=== PATIENT | male | born 1930 | race Caucasian/White ===

== ENCOUNTER → 2016-07-23 | Outpatient (CLI) | payer BC ==
[~2016-07-23] MED LIST: ALBU18002 INH; ASPI81TA28 PO; ATOR-24 PO; CARB25TA12 PO; CINN1CAP2 PO; CLR10 PO; CRAN1CAP15 PO; DUTA0.5C PO; FLUT115A INH; HYDR-5688 PO; LANS15CA27 PO; LISI-461 PO; LISI10TA PO; METO50TA16 PO; MONT1TAB3 PO; MULT-506 PO; OMEG10007 PO; POLYSOL4 OPB; POTA1CAP2 PO; PROAIR INH; RASA1TAB PO; ZNTT/150 PO; [UNRECOGNIZED DRUG - CODE] TOP
[2016-07-23 13:36] LABS: MEAN CELL VOLUME 90.9 fL (80-100); MEAN CORPUSCULAR HGB CONC 34.1 g/dl (32-36); MEAN PLATELET VOLUME 10.4 fL (7.4-10.4); PLATELET COUNT 185 K/uL (130-400); RED BLOOD COUNT 4.84 M/uL (4.7-6.1); WHITE BLOOD COUNT 12.02 K/uL (4.8-10.8)
[2016-07-23 14:10] LABS: BASO % 0.2 %; BASO ABS # 0.02 K/uL (0-0.2); COMPLETE YES; EOS % 1.4 %; IG% 0.1 %; LYMPH % 54.7 %; LYMPH ABS # 6.57 K/uL (1.2-3.4); MONO % 7.5 %; NEUT % 36.1 %
[2016-07-23 14:17] LABS: ESTIMATED AVERAGE GLUCOSE 128 mg/dl; HA1C FLAG Normal (Normal)
[2016-07-23 14:27] LABS: ALT/SGPT 21 U/L (12-78); AST/SGOT 17 U/L (15-37); BLOOD UREA NITROGEN 18 mg/dl (7-18); BUN/CREATININE RATIO 20.1 (10-20); CALCIUM 8.9 mg/dl (8.5-10.1); CARBON DIOXIDE 25 mmol/L (21-32); CHLORIDE 108 mmol/L (98-107); CREATININE 0.91 mg/dl (0.60-1.40); GLUCOSE 111 mg/dl (70-99); POTASSIUM 3.6 mmol/L (3.5-5.1); SODIUM 143 mmol/L (136-145)
[2016-07-23 14:47] LABS: SMUDGE CELLS PRESENT
[2016-07-23 14:58] LABS: ALB/GLOB RATIO 1.2 (0.9-2); ALKALINE PHOSPHATASE 82 U/L (45-117)
--- NOTE | 2016-07-27 09:29 | CODING QUERY MEDICAL NECESSITY ---
CQCQSUPPORTING DIAGNOSIS NEEDED A supporting diagnosis is required for the test/procedure performed on this patient in order for us to be reimbursed by the patient's insurance. Please provide a supporting diagnosis for the following test/procedure listed below next to the test name along with your signature. *If there is no additional diagnosis for this patient that would support the following test/procedure please document that below next to the test/procedure. Test(s)/Procedure(s) that require a supporting diagnosis: DOS 07/23/16 GLYCATED HEMOGLOBIN Provider Signature: Date: Thank you Hortencia G[facility] [employer] Once completed, please kindly fax back to [phone] For questions please call [phone]
== END | disposition home or self-care (01) ==
LOC: C.LAB1850 11:31
PROVIDERS: ATTEND Internal Medicine
DX: C91.11 Chronic lymphocytic leukemia of B-cell type in remission (principal); E87.6 Hypokalemia; D72.829 Elevated white blood cell count, unspecified; R73.03 Prediabetes

== ENCOUNTER 2016-08-18 10:49 | Emergency (ER) | payer BC ==
[~2016-08-18] VITALS: Ht 175.3 cm; Wt 74.0 kg
[~2016-08-18 10:49] MED LIST changes: -ALBU18002 INH; -HYDR-5688 PO; -[UNRECOGNIZED DRUG - CODE] TOP
[2016-08-18 11:04] VITALS: TEMP 36.9; Ht 175.3 cm; Wt 74.0 kg
[2016-08-18] MEDS ORDERED: ALBU18002 INH (11:19)
[2016-08-18] MEDS ORDERED: [UNRECOGNIZED DRUG - CODE] TOP (11:19)
[2016-08-18] MEDS ORDERED: OXYCODONE HCL IR 5 MG TAB (IMMEDIATE RELEASE) PO STA (11:45)
--- NOTE | 2016-08-18 12:32 | DIAGNOSTIC IMAGING REPORT ---
RIGHT PELVIS/UNILATERAL HIP 2-3VIEWS CLINICAL HISTORY: Fall, right hip pain/back pain Right trauma. Pain. COMPARISON: None. DISCUSSION: The bones and joint spaces appear intact. There is no evidence of fracture, dislocation or bony disease. There is no evidence for soft tissue swelling. IMPRESSION: Negative study. Electronically signed by: Markos Benton M.D. 08/18/2016 12:31 PM Dictated Date/Time: 08/18/2016 12:30 PM
--- NOTE | 2016-08-18 12:34 | DIAGNOSTIC IMAGING REPORT ---
LUMBAR SPINE 5 VIEWS HISTORY: Trauma. Pain. Fall, right hip pain/back pain COMPARISON: None. FINDINGS: There is no fracture. Moderate scoliosis. Moderate degenerative disc changes throughout. No evidence for compression deformity. IMPRESSION: Degenerative change. Scoliosis. No acute process. Electronically signed by: Markos Benton M.D. 08/18/2016 12:32 PM Dictated Date/Time: 08/18/2016 12:31 PM
--- NOTE | 2016-08-18 13:51 | DIAGNOSTIC IMAGING REPORT ---
LUMBAR SPINE CT CT DOSE: 1382.41 mGy.cm HISTORY: Trauma. Pain. Low back pain and right hip pain s/p fall TECHNIQUE: Multiaxial CT images of the lumbar spine were performed and reformatted in the sagittal and coronal plane without the use of contrast. COMPARISON: None. FINDINGS: Mild scoliosis. Vertebral body stature is normal. Considerable degenerative anterior osteophytic changes throughout. Very small cortical small cortical avulsions the tips of the right spinous processes of L2 and L3 No major compromise of the spinal canal. No major foraminal stenosis. Moderate degenerative changes of posterior elements throughout. IMPRESSION: 1. Very small cortical avulsions lateral margins transverse processes of L2 and L3 on the right. 2. Scoliosis. 3. Moderate degenerative change. Electronically signed by: Markos Benton M.D. 08/18/2016 1:50 PM Dictated Date/Time: 08/18/2016 1:46 PM
--- NOTE | 2016-08-18 14:00 | DIAGNOSTIC IMAGING REPORT ---
CT pelvis PELVIS NO IV/ORAL CONT (CT) CLINICAL HISTORY: Low back pain and right hip pain s/p fall trauma. Pain. TECHNIQUE: Transaxial acquisition with multi axial reformatted images. COMPARISON STUDY: 03/22/2016 FINDINGS: Moderate degenerative changes low lumbar spine to lesser extent sacroiliac joints. Moderate degenerative change of both hips. No acute bony abnormality. Bowel pattern appears to be nonobstructive. IMPRESSION: Moderate degenerative change. No acute bony abnormality. Electronically signed by: Markos Benton M.D. 08/18/2016 1:58 PM Dictated Date/Time: 08/18/2016 1:57 PM
[2016-08-18] MEDS ORDERED: HYDR-5688 PO (14:48)
--- NOTE | 2016-08-18 14:49 | EMERGENCY ROOM VISIT NOTE ---
History First contact with patient: 11:27 Chief Complaint: HIP PAIN Stated Complaint: RIGHT SIDE OF HIP MAY BE BROKEN History of Present Illness The patient is a 85 year old male who presents to the Emergency Room via private vehicle with complaints of "right-sided hip may be broken". The patient states that he fell this past Saturday, and has a history of Parkinson' s. His who accompanies him says he also fell a few days before that, which were believed to be mechanical falls as he may have tripped on the curb and missed a step. The patient states that since his most recent fall he has had right hip pain and low back pain. He rates the pain as a 9/10. He is taken Tylenol without relief. He denies any fevers, chills, chest pain, shortness of breath, loss of consciousness, striking his head, abdominal pain, lower extremity weakness, bowel or bladder incontinence. Review of Systems A complete 10-point Review of Systems was discussed with the patient, with pertinent positives and negatives listed in the History of Present Illness. All remaining Review of Systems questions can be considered negative unless otherwise specified. Past Medical/Surgical History Medical Problems: (1) Asthma (2) Glaucoma (3) Gout (4) Parkinson disease Family History Cancer Diabetes mellitus Hypertension Lung disease Social History Smoking Status: Never Smoker Alcohol Use: occasionally Drug Use: none Marital Status: Housing Status: lives with significant other Occupation Status: retired Current/Historical Medications Scheduled Aspirin (Aspirin Ec), 81 MG PO DAILY Atorvastatin (Lipitor), 40 MG PO DAILY Carbidopa/Levodopa (Sinemet 25MG/100MG), 3 TAB PO TID Cinnamon (Cinnamon), 500 MG PO DAILY Cranberry-Vitamin C-Vitamin E (Cranberry), 1 CAPSULE PO DAILY Dutasteride (Avodart), 0.5 MG PO DAILY Fish Oil ([place]-3), 1,400 MG PO DAILY Fluorouracil (Fluorouracil), 1 APPL TOP BID Fluticasone-Salmeterol 115/21 Mcg (Advair Hfa 115/21 Mcg), 2 PUFF INH Q12 Lansoprazole (Prevacid), 15 MG PO DAILY Lisinopril (Lisinopril), 10 MG PO QAM Lisinopril (Prinivil), 5 MG PO QPM Loratadine (Claritin), 10 MG PO DAILY Metoprolol Tartrate (Lopressor) (Lopressor), 50 MG PO BID Montelukast Sodium (Singulair), 10 MG PO DAILY Multivitamin (Multivitamin), 1 TAB PO DAILY Potassium Chloride (Potassium Chloride Er), 10 MEQ PO DAILY Ranitidine (Zantac), 1 TAB PO BID Rasagiline Mesylate (Azilect), 1 MG PO DAILY Scheduled PRN Albuterol Sulfate (Proair Respiclick), 2 PUFF INH Q4 PRN for Wheezing Hydrocodone/Acetaminophen 5MG/325MG ([place] 5MG/325MG), 1-2 TABLET PO Q6 PRN for Pain Polyethylene Glycol-Propylene (Systane), 1 DROP OPB QID PRN Allergies Coded Allergies: Grass (Verified Allergy, Intermediate, allergy, 08/18/16) Cat Dander (Verified Allergy, Unknown, allergy, 08/18/16) Physical Exam Vital Signs Date Time Temp Pulse Resp B/P Pulse Ox O2 Delivery O2 Flow Rate FiO2 08/18/16 15:18 62 14 132/66 98 08/18/16 13:16 71 16 144/71 96 Room Air 08/18/16 11:04 36.9 79 20 131/78 95 Room Air Pain Rating (0-10): 9.0 Physical Exam VITAL SIGNS - Vital signs and nursing notes were reviewed. GENERAL -85-year-old male appearing his stated age who is in no acute distress. Communicates well with provider and answers questions appropriately. SKIN - no petechial rashes. There is a small seborrhea-like rash on the right superior forehead. HEAD - NC/AT. EYES - PERRL with EOMI bilaterally. Sclera anicteric. Palpebral conjunctiva pink and moist with no injection noted. EARS - No deformities of external structures noted on gross examination bilaterally. NOSE - Midline and without cyanosis. No epistaxis or purulent drainage noted. Septum midline without deviation or septal hematoma noted. MOUTH/OROPHARYNX - Without perioral cyanosis. Buccal mucosa pink and moist and without leukoplakia. Tongue midline with equal elevation of palate bilaterally. No tonsillar hypertrophy, erythema, or exudates noted. Fair dentition noted. NECK - Neck with FROM. No C-spine tenderness LUNGS - Chest wall symmetric without accessory muscle use, intercostals retractions, or central cyanosis. Normal vesicular breath sounds CTA B/L. No wheezes, rales, or rhonchi appreciated. CARDIAC - RRR with S1/S2. No murmur, rubs, or gallops appreciated. ABDOMEN - Abdominal contour without pulsations or visible masses. BS normoactive all four quadrants. No tenderness, palpable masses, hepatosplenomegaly, or ascites noted. EXTREMITIES - No clubbing or peripheral cyanosis. No pretibial edema present. +5 /5 strength noted in UE/LE bilaterally. MUSCULOSKELETAL: There is minimal palpation to the right anterior hip, there is right inferior lumbar spinous tenderness. NEUROLOGIC - Cranial nerves II through XII grossly intact. PSYCH - Pt is very pleasant and interacts well with examiner. Medical Decision & Procedures ER Provider Diagnostic Interpretation: LUMBAR SPINE 5 VIEWS HISTORY: Trauma. Pain. Fall, right hip pain/back pain COMPARISON: None. FINDINGS: There is no fracture. Moderate scoliosis. Moderate degenerative disc changes throughout. No evidence for compression deformity. IMPRESSION: Degenerative change. Scoliosis. No acute process. Electronically signed by: Markos Benton M.D. 08/18/2016 12:32 PM Dictated Date/Time: 08/18/2016 12:31 PM RIGHT PELVIS/UNILATERAL HIP 2-3VIEWS CLINICAL HISTORY: Fall, right hip pain/back pain Right trauma. Pain. COMPARISON: None. DISCUSSION: The bones and joint spaces appear intact. There is no evidence of fracture, dislocation or bony disease. There is no evidence for soft tissue swelling. IMPRESSION: Negative study. Electronically signed by: Markos Benton M.D. 08/18/2016 12:31 PM Dictated Date/Time: 08/18/2016 12:[address] pelvis PELVIS NO IV/ORAL CONT (CT) CLINICAL HISTORY: Low back pain and right hip pain s/p fall trauma. Pain. TECHNIQUE: Transaxial acquisition with multi axial reformatted images. COMPARISON STUDY: 03/22/2016 FINDINGS: Moderate degenerative changes low lumbar spine to lesser extent sacroiliac joints. Moderate degenerative change of both hips. No acute bony abnormality. Bowel pattern appears to be nonobstructive. IMPRESSION: Moderate degenerative change. No acute bony abnormality. Electronically signed by: Markos Benton M.D. 08/18/2016 1:58 PM Dictated Date/Time: 08/18/2016 1:[address] DOSE: 1382.41 mGy.cm HISTORY: Trauma. Pain. Low back pain and right hip pain s/p fall TECHNIQUE: Multiaxial CT images of the lumbar spine were performed and reformatted in the sagittal and coronal plane without the use of contrast. COMPARISON: None. FINDINGS: Mild scoliosis. Vertebral body stature is normal. Considerable degenerative anterior osteophytic changes throughout. Very small cortical small cortical avulsions the tips of the right spinous processes of L2 and L3 No major compromise of the spinal canal. No major foraminal stenosis. Moderate degenerative changes of posterior elements throughout. IMPRESSION: 1. Very small cortical avulsions lateral margins transverse processes of L2 and L3 on the right. 2. Scoliosis. 3. Moderate degenerative change. Electronically signed by: Markos Benton M.D. 08/18/2016 1:50 PM Dictated Date/Time: 08/18/2016 1:46 PM Medications Administered Medications (Trade) Dose Ordered Sig/Kristina Route Start Time Stop Time Status Last Admin Dose Admin Oxycodone HCl (Roxicodone Immediate Rel Tab) 5 mg NOW STAT PO 08/18/16 11:45 08/18/16 11:46 DC 08/18/16 11:56 5 MG Medical Decision Patient was seen and evaluated as above. He was given 1 OxyIR for his pain, and radiographs were obtained of the affected regions. These were negative for acute process, but I had a high index of suspicion for a small fracture. CT was obtained of the pelvis and low back. Lumbar region does have a tiny fracture of the transverse processes. Patient was educated upon this finding, and this was discussed with my attending. I did elect to discuss the case with the on-call orthopedic developmental specialist, Dr. Randhawa at 2:35 PM. He informed me to have the patient call his office first thing Saturday morning, to be seen either Saturday or Saturday. He informed me that the patient would likely be fitted with a back brace at this time, but we from the emergency department did not need to provide him with this. The patient was educated upon importance of follow-up, and requested something for pain therefore did elect to provide him a tramadol prescription however this does seem to interact with his current medications. I did elect to provide him with [place], but did have a thorough discussion with his and he regarding increased fall risk secondary to this medication side effects. They verbalized understanding, and a short prescription was written for this patient. They're educated upon worrisome symptoms which to return, had questions prior to discharge and was discharged home in good condition. Patient was neurovascularly intact throughout his stay in the emergency department. The evaluation treatment this patient following differential diagnoses were entertained: Spine fracture, hip fracture, pelvis fracture, contusion, lumbar strain, among others. [place] Drug Monitoring Program Search Results: patient reviewed within database, no issues identified Impression Primary Impression: Spinous process fracture Departure Information Dispostion Home / Self-Care Condition GOOD Prescriptions Hydrocodone/Acetaminophen 5MG/325MG ([place] 5MG/325MG) Tab 1-2 TABLET PO Q6 Y for Pain, #15 TAB For Initial Treatment Prov: Natalio Rosas, [place] 08/18/16 Referrals Anderson Snyder M.D. (PCP) Lefty Randhawa D.O. Patient Instructions My [facility] Additional Instructions You have been treated in the Emergency Department for Back Pain. You have received pain medicine in the emergency department which impairs your ability to operate a vehicle. It is illegal for you to drive after receiving these medicines. You have been prescribed NORCO to be used for pain control. This is a narcotic medication. You cannot drive or consume alcohol while on this medicine. This medicine should only be used for pain that cannot be controlled with over-the- counter pain medicines. DO NOT TAKE WITH TYLENOL!!! If this is an acute injury, ice can be applied to the area of pain for the first 3 days to help decrease pain and inflammation. After the first 3 days, a heating pad can be used over the area for continued soothing relief. You should schedule a follow-up appointment on saturday with Dr. Randhawa. Number provided. Return to the Emergency Department if your current symptoms worsen despite treatment course outlined above, or if you develop any of the following symptoms : intractable pain despite aforementioned treatment course, loss of control of your bowel or bladder, numbness or tingling in your groin, or development of a fever. Please return to the emergency department with any new/concerning symptoms.
[2016-08-18 15:18] VITALS: BP 132/66; PULSE 62; O2SAT 98
== END 2016-08-18 15:21 | disposition home or self-care (01) ==
LOC: C.EDB 10:51 → C.EDD 15:21
DX: S32.029A Unspecified fracture of second lumbar vertebra, initial encounter for closed fracture (principal); S32.039A Unspecified fracture of third lumbar vertebra, initial encounter for closed fracture; W19.XXXA Unspecified fall, initial encounter; G20 Parkinson's disease; J45.909 Unspecified asthma, uncomplicated; R21 Rash and other nonspecific skin eruption; H40.9 Unspecified glaucoma; M10.9 Gout, unspecified; Z80.9 Family history of malignant neoplasm, unspecified; Z83.3 Family history of diabetes mellitus; Z82.49 Family history of ischemic heart disease and other diseases of the circulatory system; Z79.82 Long term (current) use of aspirin; Z79.899 Other long term (current) drug therapy

== ENCOUNTER → 2016-08-22 | Outpatient (CLI) | payer BC ==
[~2016-08-22] MED LIST changes: +ALBU18002 INH; +HYDR-5688 PO; -PROAIR INH; +[UNRECOGNIZED DRUG - CODE] TOP
--- NOTE | 2016-08-22 14:16 | DIAGNOSTIC IMAGING REPORT ---
THORACIC SPINE 3 VIEWS ROUTINE CLINICAL HISTORY: Back pain COMPARISON STUDY: No previous studies for comparison. FINDINGS: The paraspinal line is not displaced. There is an old T7 compression deformity. No acute fractures are visualized. There are multilevel degenerative changes. No destructive lesions are visualized on conventional graphic imaging IMPRESSION: 1. Old T7 compression deformity. 2. Multilevel degenerative change 3. No acute fractures identified Electronically signed by: Brady Paulson M.D. 08/22/2016 2:15 PM Dictated Date/Time: 08/22/2016 2:13 PM
== END | disposition home or self-care (01) ==
LOC: C.RAD1850 13:54
PROVIDERS: ATTEND Internal Medicine
DX: M54.6 Pain in thoracic spine (principal)

== ENCOUNTER → 2016-09-21 | Outpatient (CLI) | payer BC ==
[2016-09-21 11:37] LABS: HEMATOCRIT 40.5 % (42-52); MEAN CELL VOLUME 94.6 fL (80-100); MEAN CORPUSCULAR HEMOGLOBIN 31.3 pg (25-34); MEAN CORPUSCULAR HGB CONC 33.1 g/dl (32-36); MEAN PLATELET VOLUME 9.9 fL (7.4-10.4); PLATELET COUNT 163 K/uL (130-400); RED BLOOD COUNT 4.28 M/uL (4.7-6.1); WHITE BLOOD COUNT 11.93 K/uL (4.8-10.8)
[2016-09-21 12:02] LABS: ALT/SGPT 10 U/L (12-78); AST/SGOT 14 U/L (15-37); BLOOD UREA NITROGEN 18 mg/dl (7-18); BUN/CREATININE RATIO 19.8 (10-20); CALCIUM 8.6 mg/dl (8.5-10.1); CARBON DIOXIDE 30 mmol/L (21-32); CHLORIDE 109 mmol/L (98-107); CREATININE 0.93 mg/dl (0.60-1.40); GLUCOSE 92 mg/dl (70-99); POTASSIUM 3.9 mmol/L (3.5-5.1); SODIUM 143 mmol/L (136-145)
[2016-09-21 12:05] LABS: ALB/GLOB RATIO 1.1 (0.9-2); ALKALINE PHOSPHATASE 76 U/L (45-117)
[2016-09-21 12:28] LABS: BASO ABS # 0.12 K/uL (0-0.2); COMPLETE YES; LYMPH ABS # 5.61 K/uL (1.2-3.4)
== END | disposition home or self-care (01) ==
LOC: C.LAB1850 10:31
PROVIDERS: ATTEND Internal Medicine Hematology & Oncology
DX: C91.11 Chronic lymphocytic leukemia of B-cell type in remission (principal)

== ENCOUNTER → 2017-01-21 | Outpatient (CLI) | payer BC ==
[2017-01-21 12:20] LABS: HEMATOCRIT 43.8 % (42-52); MEAN CORPUSCULAR HEMOGLOBIN 31.1 pg (25-34); MEAN CORPUSCULAR HGB CONC 33.8 g/dl (32-36); MEAN PLATELET VOLUME 10.4 fL (7.4-10.4); PLATELET COUNT 164 K/uL (130-400); RED BLOOD COUNT 4.76 M/uL (4.7-6.1); WHITE BLOOD COUNT 11.06 K/uL (4.8-10.8)
[2017-01-21 12:40] LABS: BLOOD UREA NITROGEN 18 mg/dl (7-18); BUN/CREATININE RATIO 19.9 (10-20); CALCIUM 9.2 mg/dl (8.5-10.1); CARBON DIOXIDE 28 mmol/L (21-32); CHLORIDE 108 mmol/L (98-107); CHOLESTEROL 127 mg/dl (0-200); CREATININE 0.89 mg/dl (0.60-1.40); GLUCOSE 105 mg/dl (70-99); POTASSIUM 3.4 mmol/L (3.5-5.1); SODIUM 142 mmol/L (136-145); TRIGLYCERIDES 190 mg/dl (0-150); VERY LOW DENSITY LIPOPROT CALC 38 mg/dl
[2017-01-21 12:44] LABS: CHOLESTEROL/HDL RATIO 3.2; HDL CHOLESTEROL 40 mg/dl; LDL CHOLESTEROL CALCULATED 49 mg/dl; PROSTATE SPECIFIC ANTIGEN 0.769 ng/ml (0.000-4.000)
[2017-01-21 13:23] LABS: BASO % 0.3 %; BASO ABS # 0.03 K/uL (0-0.2); COMPLETE YES; EOS % 1.4 %; IG% 0.2 %; LYMPH % 56.1 %; LYMPH ABS # 6.21 K/uL (1.2-3.4); MONO % 7.9 %; NEUT % 34.1 %
== END | disposition home or self-care (01) ==
LOC: C.LAB1850 10:58
PROVIDERS: ATTEND Internal Medicine
DX: E78.5 Hyperlipidemia, unspecified (principal); D72.829 Elevated white blood cell count, unspecified; I10 Essential (primary) hypertension; R35.0 Frequency of micturition

== ENCOUNTER → 2017-01-22 | Outpatient (CLI) | payer BC ==
--- NOTE | 2017-01-22 16:00 | DIAGNOSTIC IMAGING REPORT ---
R HIP UNILATERAL 2 VIEWS CLINICAL HISTORY: 86 years-old Male presenting with M25.551 Right hip [id number]. TECHNIQUE: Frontal and frog-leg lateral views the right hip were obtained. COMPARISON: 02/06/2016. FINDINGS: Right hip joint congruent. No acute fracture or malalignment. No joint space loss. No advanced degenerative change. Visualized portion of the bony pelvis normal. IMPRESSION: No acute osseous injury of the right hip. Electronically signed by: Asaf Byrne M.D. 01/22/2017 3:58 PM Dictated Date/Time: 01/22/2017 3:58 PM
--- NOTE | 2017-01-22 16:03 | DIAGNOSTIC IMAGING REPORT ---
R FOOT MIN 3 VIEWS ROUTINE CLINICAL HISTORY: M79.673 right foot pain COMPARISON: None. DISCUSSION: Examination is limited from a positioning standpoint. There are equivocal age-indeterminate fractures involving the bases of the proximal phalanges of the third and fourth toes. If the patient is tender in this location been additional views are recommended in follow-up. There is no dislocation. IMPRESSION: Equivocal age-indeterminate fractures involving the bases of the proximal phalanges of the third and fourth toes. If the patient is tender in this location, then supplemental imaging should be obtained in follow-up. Electronically signed by: Brady Paulson M.D. 01/22/2017 4:02 PM Dictated Date/Time: 01/22/2017 3:59 PM
== END | disposition home or self-care (01) ==
LOC: C.RAD1850 15:13
PROVIDERS: ATTEND Internal Medicine
DX: S92.511A Displaced fracture of proximal phalanx of right lesser toe(s), initial encounter for closed fracture (principal); M25.551 Pain in right hip; X58.XXXA Exposure to other specified factors, initial encounter

== ENCOUNTER → 2017-04-29 | Outpatient (CLI) | payer BC ==
[~2017-04-29] MED LIST changes: -HYDR-5688 PO
[2017-04-29 13:08] LABS: HEMATOCRIT 43.1 % (42-52); HEMOGLOBIN 15.5 g/dL (14.0-18.0); MEAN CELL VOLUME 92.7 fL (80-100); MEAN CORPUSCULAR HEMOGLOBIN 33.3 pg (25-34); MEAN PLATELET VOLUME 10.2 fL (7.4-10.4); PLATELET COUNT 158 K/uL (130-400); RED CELL DISTRIBUTION WIDTH CV 14.1 % (11.5-14.5); RED CELL DISTRIBUTION WIDTH SD 47.2 fL (36.4-46.3); WHITE BLOOD COUNT 11.77 K/uL (4.8-10.8)
[2017-04-29 13:35] LABS: ALBUMIN 3.9 gm/dl (3.4-5.0); ALT/SGPT 32 U/L (12-78); BLOOD UREA NITROGEN 18 mg/dl (7-18); CALCIUM 8.9 mg/dl (8.5-10.1); CARBON DIOXIDE 25 mmol/L (21-32); CREATININE 0.83 mg/dl (0.60-1.40); GLUCOSE 111 mg/dl (70-99); POTASSIUM 3.4 mmol/L (3.5-5.1); SODIUM 140 mmol/L (136-145)
[2017-04-29 13:38] LABS: ALKALINE PHOSPHATASE 83 U/L (45-117); AST/SGOT 21 U/L (15-37); TOTAL PROTEIN 6.9 gm/dl (6.4-8.2)
== END | disposition home or self-care (01) ==
LOC: C.LAB1850 12:15
PROVIDERS: ATTEND Internal Medicine
DX: C91.11 Chronic lymphocytic leukemia of B-cell type in remission (principal)

== ENCOUNTER → 2017-08-13 | Outpatient (CLI) | payer BC ==
[~2017-08-13] MED LIST changes: +RANI150T85 PO; -ZNTT/150 PO
[2017-08-13 13:12] LABS: HEMATOCRIT 43.9 % (42-52); MEAN CELL VOLUME 91.3 fL (80-100); MEAN CORPUSCULAR HEMOGLOBIN 31.2 pg (25-34); MEAN CORPUSCULAR HGB CONC 34.2 g/dl (32-36); MEAN PLATELET VOLUME 10.4 fL (7.4-10.4); PLATELET COUNT 171 K/uL (130-400); RED CELL DISTRIBUTION WIDTH CV 14.4 % (11.5-14.5); RED CELL DISTRIBUTION WIDTH SD 48.5 fL (36.4-46.3); WHITE BLOOD COUNT 11.16 K/uL (4.8-10.8)
[2017-08-13 13:32] LABS: HEMOGLOBIN A1C 6.1 % (4.5-5.6)
[2017-08-13 13:58] LABS: BLOOD UREA NITROGEN 16 mg/dl (7-18); CALCIUM 9.2 mg/dl (8.5-10.1); CARBON DIOXIDE 27 mmol/L (21-32); CREATININE 0.98 mg/dl (0.60-1.40); GLUCOSE 118 mg/dl (70-99); POTASSIUM 3.8 mmol/L (3.5-5.1); SODIUM 142 mmol/L (136-145)
== END | disposition home or self-care (01) ==
LOC: C.LAB1850 11:55
PROVIDERS: ATTEND Internal Medicine
DX: E87.6 Hypokalemia (principal); G62.9 Polyneuropathy, unspecified; D72.829 Elevated white blood cell count, unspecified; R73.03 Prediabetes; M10.9 Gout, unspecified

== ENCOUNTER 2018-08-03 20:52 | Inpatient (IN) ==
[2018-08-03] MEDS ORDERED: CARBIDOPA/LEVODOPA 25/100MG TAB PO STA (21:14)
[2018-08-03] MEDS ORDERED: ALBUT/IPRATROP 3MG/0.5MG NEB 3 ML VIAL INH STA (21:14)
[2018-08-03] MEDS ORDERED: SODIUM CHLORIDE 0.9% 1000ML 1,000 ML IV SCH (21:15)
[2018-08-03 21:22] LABS: Hematocrit (blood only) 38.7 % (42-52); Hemoglobin 13.5 g/dL (14.0-18.0); Mean Corpuscular Hgb Conc 34.9 g/dL (32-36); Mean Platelet Volume 9.5 fL (7.4-10.4); Platelet Count 207 K/uL (130-400); RDW Coefficient of Variation 14.6 % (11.5-14.5); RDW Standard Deviation 48.3 fL (36.4-46.3); White Blood Count 17.77 K/uL (4.8-10.8)
--- NOTE | 2018-08-03 21:34 | XRay Report ---
XR chest 1V portable HISTORY: Dyspnea COMPARISON: Chest 03/01/2018. FINDINGS: No pneumothorax. No pleural effusions. The heart remains borderline enlarged. Left lung is clear. Old, healed right-sided rib fractures. Patchy right basilar densities. IMPRESSION: Patchy right basilar densities which are new from the prior study. This could represent atelectasis o r pneumonia. Electronically signed by: Anjel Ludwig M.D. 08/03/2018 9:33 PM
[2018-08-03] MEDS ORDERED: PIPERACILLIN/TAZOBACTAM 4.5 GM/120 ML BAG IV ONE (21:39)
[2018-08-03] MEDS ORDERED: PIPERACILL/TAZOBAC CONSULT ACTIVE PRN (21:39)
[2018-08-03] MEDS ORDERED: LEVOFLOXACIN/D5W 750 MG/150 ML BAG IV STA (21:39)
[2018-08-03] MEDS ORDERED: VANCOMYCIN CONSULT ACTIVE PRN (21:39)
[2018-08-03] MEDS ORDERED: VANCOMYCIN HCL 1,500 MG in SODIUM CHLORIDE 0.9% 500 ML IV ONE (21:39)
[2018-08-03 21:41] LABS: Albumin Level 3.3 gm/dl (3.4-5.0); BUN Creatinine Ratio 22.3 (10-20); Calcium 9.1 mg/dl (8.5-10.1); Creatinine Clr Calc Pharmacy 62.1 ml/min; Est GFR (African American) 91.2; Est GFR (Non-African American) 78.7; Potassium 3.5 mmol/L (3.5-5.1)
[2018-08-03 21:46] LABS: Albumin Globulin Ratio 0.8 (0.9-2); Bilirubin,Total 0.3 mg/dl (0.2-1); Total Protein 7.3 gm/dl (6.4-8.2); Troponin I 0.016 ng/ml (0-0.045)
[2018-08-03 21:50] LABS: Partial Thromboplastin Time 26.7 Seconds (21.0-31.0); Prothrombin Time 10.2 Seconds (9.0-12.0)
[2018-08-03 21:56] LABS: Influenza B virus by PCR Neg for Influ B (Neg)
[2018-08-03 22:04] LABS: Oxygen Saturation VBG 72.4 %; pH VBG 7.44 (7.36-7.41)
[2018-08-03 22:06] LABS: Basophils # (auto) 0.01 K/uL (0-0.2); Basophils % (auto) 0.1 %; Eosinophils # (auto) 0.03 K/uL (0-0.5); Eosinophils % (auto) 0.2 %; Immature Granulocytes # (auto) 0.05 K/uL (0.00-0.02); Immature Granulocytes % (auto) 0.3 %; Lymphocytes # (auto) 3.72 K/uL (1.2-3.4); Lymphocytes % (auto) 20.9 %; Monocytes # (auto) 1.16 K/uL (0.11-0.59); Monocytes % (auto) 6.5 %
[2018-08-03] MEDS ORDERED: OSELTAMIVIR PHOSPHATE 75 MG CAP PO STA (22:22)
[2018-08-03 23:02] LABS: Appearance Urine Clear (Clear); Bilirubin Urine Negative (Negative); Blood Urine Negative (Negative); Color Urine Yellow; Glucose Urine UA Negative (Negative); Ketones Urine Negative (Negative); Leukocyte Esterase Urine Negative (Negative); Nitrite Urine Negative (Negative); Protein Urine Negative (Negative); Specific Gravity Urine 1.013 (1.000-1.030); Urobilinogen Urine Negative (Negative)
--- NOTE | 2018-08-04 01:03 | History & Physical Report ---
Date of Service August 04, 2018 Assessment & Plan (1) Hospital acquired PNA: 87yoM with hx of CLL, HTN, HLD, Parkinson's, asthma, glaucoma, gout, GERD, BPH presents with weakness x 1 day. Admitted for influenza A and concern of RLL HCAP as pt was in [facility] for 2 weeks and discharged on 08/01. HCAP: -Presents with weakness and cough -Afebrile -WBC 17.7 -CXR patchy R basilar densities new atelectasis vs. PNA -BCx2 pending -Received levaquin, vanc and zosyn x 1 in ED -On Vanc and Zosyn -Duoneb QID Kristina Influenza A -On Oseltamivir Bilateral LE edema: concern for CHF vs. venous stasis -Pt denies hx of heart failure and reports chronic -ECHO ordered to further work up Hx of Asthma -Continue home advair, albuterol inh prn, loratidine and singulair CV: HTN/HLD -Continue home metoprolol, lisinopril, aspirin and lipitor Parkinson's Disease -Continue home Sinemet and Rasagiline GERD -Continue home prevacid and ranitidine BPH -Continue home dutasteride DVT prop: Lovenox SQ daily Code: Full Dispo: med/surg telemetry (2) Influenza A: (3) Asthma: (4) Gout: (5) Glaucoma: (6) Parkinson disease: (7) HTN (hypertension): History of Present Illness Chief Complaint: Weakness and cough Primary Care Provider: Anderson Snyder MD 87yoM with hx of CLL, HTN, HLD, Parkinson's, asthma, glaucoma, gout, BPH presents with weakness x 1 day. Reports being at [facility] for 2 weeks to get stronger and was discharged on 08/01. Today he felt very weak. It took him 2 hours to get ready to come downstairs to eat something and then had to sit on the steps half way because he felt very tired. A/w feeling thirsty, mildly productive cough, sob, headache, chronic constipation. Denies f/c, rhinorrhea, cp, n/v, abdominal pain, d/c, hematochezia, dysuria, hematuria In the Ed found to have WBC of 17.7 and CXR concerning for RLL PNA and he was positive for influenza A. Received levaquin, zosyn and vanc x 1. Duoneb x 1, NS 1L IVF, Oseltamivir x 1. He was afebrile, but mildly hypertensive and tachycardic to 100s. Allergies Allergy/AdvReac Type Severity Reaction Status Date / Time grass pollen-perennial rye, Allergy Intermediate allergy Verified 08/03/18 21:32 standar cat dander Allergy Unknown allergy Verified 08/03/18 21:32 Home Medications Home Medications Medication Instructions Recorded Confirmed Type albuterol sulfate [ProAir HFA] 2 puff INHALATION Q4H PRN 01/31/18 08/03/18 History aspirin 81 mg PO DAILY 01/31/18 08/03/18 History atorvastatin [Lipitor] 40 mg PO DAILY 01/31/18 08/03/18 History carbidopa-levodopa [Sinemet] 2 tab PO DIRECTED 01/31/18 08/03/18 History cholecalciferol (vitamin D3) 2,000 unit PO DAILY 01/31/18 08/03/18 History [Vitamin D3] cinnamon bark [Cinnamon] 1 tab PO DAILY 01/31/18 08/03/18 History cranberry 1,000 mg PO DAILY 01/31/18 08/03/18 History dutasteride [Avodart] 0.5 mg PO DAILY 01/31/18 08/03/18 History lansoprazole [Prevacid] 15 mg PO DAILY 01/31/18 08/03/18 History lisinopril 5 mg PO DAILY 01/31/18 08/03/18 History loratadine [Claritin] 10 mg PO DAILY 01/31/18 08/03/18 History metoprolol tartrate 75 mg PO BID 01/31/18 08/03/18 History montelukast [Singulair] 10 mg PO PM 01/31/18 08/03/18 History multivitamin 1 tab PO DAILY 01/31/18 08/03/18 History [id number]-fish oil [Bryson-3 1,400 mg PO DAILY 01/31/18 08/03/18 History Fish Oil] peg 400-propylene glycol (PF) 1 drp OPHTHALMIC (EYE) DAILY 01/31/18 08/03/18 History [Systane (PF)] potassium chloride 10 meq PO DAILY 01/31/18 08/03/18 History ranitidine HCl [Zantac] 150 mg PO BID 01/31/18 08/03/18 History rasagiline 1 mg PO DAILY 01/31/18 08/03/18 History turmeric 400 mg PO DAILY 01/31/18 08/03/18 History fluticasone propion-salmeterol 1 puff INHALATION BID 08/03/18 08/03/18 History [Advair Diskus] ibuprofen 200 mg PO Q6H 08/03/18 08/03/18 History Past Med/Surg History Medical History Asthma (Chronic) Gout (Chronic) Glaucoma (Resolved) Parkinson disease (Chronic) Asthma exacerbation (Acute 11/26/13) Cough (Acute) Dizziness (Acute) Sinusitis (Acute) CLL (chronic lymphocytic leukemia) Family History Other Family history non-contributory Social History Preferred Language: Icelandic Communication Ability: Effective Scrap Iron Loader Required: No Beliefs That Will Affect Care: None marital status: Current Living Situation: Spouse Feels Safe at Home: Yes Safety Concerns: Feels Safe At This Time Smoking Status: Never smoker Hx Alcohol Use: Yes Alcohol type: beer, wine and hard liquor Hx Substance Use: No Review of Systems Review of Systems: As per HPI Physical Exam Physical Exam: General: In NAD, appears tired CV: RRR, no m/r/g PULM: Coarse breath sounds, bibasilar mild rhonchi and crackles appreciated, equal breath sounds bilaterally ABDOMEN: +BS, non-distended, non-tender to palpation in all quadrants LE: no calf TTP, 2+ b/l LE edema R > L Results & Data Vital Signs (Past 12 Hours) Vital Signs Temp Pulse Resp BP Pulse Ox 08/04/18 00:00 96 H 27 H 142/74 H 94 08/03/18 23:30 102 H 32 H 143/80 H 94 08/03/18 23:00 105 H 31 H 155/89 H 95 08/03/18 22:31 106 H 29 H 150/99 H 95 08/03/18 22:30 108 H 28 H 94 08/03/18 22:18 107 H 23 163/87 H 94 08/03/18 22:00 109 H 22 97 08/03/18 21:30 98 H 21 153/73 H 99 08/03/18 21:02 100 H 20 157/108 H 95 08/03/18 21:00 100 H 24 96 08/03/18 20:59 101 H 29 H 96 08/03/18 20:57 37.4 C 101 H 24 161/71 H 96 08/03/18 20:55 104 H 26 H 161/71 H 96 Laboratory Results Abnormal lab results 08/03/18 08/03/18 08/03/18 Range/Units 21:02 21:02 21:02 WBC 17.77 H (4.8-10.8) K/uL RBC 4.30 L (4.7-6.1) M/uL Hgb 13.5 L (14.0-18.0) g/dL Hct 38.7 L (42-52) % RDW Std Deviation 48.3 H (36.4-46.3) fL RDW Coeff of Marco 14.6 H (11.5-14.5) % Immature Gran # (Auto) 0.05 H (0.00-0.02) K/uL Neut # (Auto) 12.80 H (1.4-6.5) K/uL Lymph # (Auto) 3.72 H (1.2-3.4) K/uL Hodgeman # (Auto) 1.16 H (0.11-0.59) K/uL VBG pH (7.36-7.41) VBG pCO2 (38-50) mmHg BUN 19 H (7-18) mg/dl BUN/Creatinine Ratio 22.3 H (10-20) Glucose 152 H (70-99) mg/dl Alkaline Phosphatase 127 H (45-117) U/L Albumin 3.3 L (3.4-5.0) gm/dl Albumin/Globulin Ratio 0.8 L (0.9-2) Influenza Type A (PCR) Pos for Influ A A* (Neg) 08/03/18 Range/Units 21:50 WBC (4.8-10.8) K/uL RBC (4.7-6.1) M/uL Hgb (14.0-18.0) g/dL Hct (42-52) % RDW Std Deviation (36.4-46.3) fL RDW Coeff of Marco (11.5-14.5) % Immature Gran # (Auto) (0.00-0.02) K/uL Neut # (Auto) (1.4-6.5) K/uL Lymph # (Auto) (1.2-3.4) K/uL Hodgeman # (Auto) (0.11-0.59) K/uL VBG pH 7.44 H (7.36-7.41) VBG pCO2 36 L (38-50) mmHg BUN (7-18) mg/dl BUN/Creatinine Ratio (10-20) Glucose (70-99) mg/dl Alkaline Phosphatase (45-117) U/L Albumin (3.4-5.0) gm/dl Albumin/Globulin Ratio (0.9-2) Influenza Type A (PCR) (Neg) Diagnostic Findings XR chest 1V portable HISTORY: Dyspnea COMPARISON: Chest 03/01/2018. FINDINGS: No pneumothorax. No pleural effusions. The heart remains borderline enlarged. Left lung is clear. Old, healed right-sided rib fractures. Patchy right basilar densities. IMPRESSION: Patchy right basilar densities which are new from the prior study. This could represent atelectasis or pneumonia. Code Status & VTE Plan Code Status Full VTE Prophylaxis Plan VTE Prophylaxis will be ordered: Yes Resident Activity Tracking Resident Involvement: Resident Care Provided Care Provided: Adult Hospital Medicine
--- NOTE | 2018-08-04 01:14 | Emergency Department Note ---
Entered by Isaías Boyle acting as a scribe for Van Moss MD History of Present Illness General Chief complaint: Cough Stated complaint: WEAKNESS, MENTAL STATUS CHANGE Time Seen by Provider: 08/03/18 21:03 Source: patient and family History of Present Illness Provider complaint: Cough Onset (ago): day(s) 4 Location: chest Radiation: non-radiation Pain Consistency: + constant Relieved By: + none Exacerbated By: + none Associated symptoms: + cough and + shortness of breath; no chest pain and no fever/chills The patient is an 87 year old male w/ PMHx of Parkinson's disease, HTN, Gout, and HLD who presents to the ED w/ CC of a constant productive cough beginning about 4 days ago. The patient states the cough is productive with a colored mucous, however he could not recall the color. With the cough he has some shortness of breath but denies any fevers, chills, or chest pains. The patient's states that he constacted the cough while he was in [facility] last week getting treated for Parkinson's symptoms. He was in [facility] for 2 weeks. His also noted that his right leg is typically more swollen than his left at baseline. En route the patient received a duoneb and fluid bolus from EMS. Home Medications Home Medications Medication Instructions Recorded Confirmed Type albuterol sulfate [ProAir HFA] 2 puff INHALATION Q4H PRN 01/31/18 08/03/18 History aspirin 81 mg PO DAILY 01/31/18 08/03/18 History atorvastatin [Lipitor] 40 mg PO DAILY 01/31/18 08/03/18 History carbidopa-levodopa [Sinemet] 2 tab PO DIRECTED 01/31/18 08/03/18 History cholecalciferol (vitamin D3) 2,000 unit PO DAILY 01/31/18 08/03/18 History [Vitamin D3] cinnamon bark [Cinnamon] 1 tab PO DAILY 01/31/18 08/03/18 History cranberry 1,000 mg PO DAILY 01/31/18 08/03/18 History dutasteride [Avodart] 0.5 mg PO DAILY 01/31/18 08/03/18 History lansoprazole [Prevacid] 15 mg PO DAILY 01/31/18 08/03/18 History lisinopril 5 mg PO DAILY 01/31/18 08/03/18 History loratadine [Claritin] 10 mg PO DAILY 01/31/18 08/03/18 History metoprolol tartrate 75 mg PO BID 01/31/18 08/03/18 History montelukast [Singulair] 10 mg PO PM 01/31/18 08/03/18 History multivitamin 1 tab PO DAILY 01/31/18 08/03/18 History [id number]-[id number]-epa-fish oil [Una-3 1,400 mg PO DAILY 01/31/18 08/03/18 History Fish Oil] peg 400-propylene glycol (PF) 1 drp OPHTHALMIC (EYE) DAILY 01/31/18 08/03/18 History [Systane (PF)] potassium chloride 10 meq PO DAILY 01/31/18 08/03/18 History ranitidine HCl [Zantac] 150 mg PO BID 01/31/18 08/03/18 History rasagiline 1 mg PO DAILY 01/31/18 08/03/18 History turmeric 400 mg PO DAILY 01/31/18 08/03/18 History fluticasone propion-salmeterol 1 puff INHALATION BID 08/03/18 08/03/18 History [Advair Diskus] ibuprofen 200 mg PO Q6H 08/03/18 08/03/18 History Allergies Allergy/AdvReac Type Severity Reaction Status Date / Time grass pollen-perennial rye, Allergy Intermediate allergy Verified 08/03/18 21:32 standar cat dander Allergy Unknown allergy Verified 08/03/18 21:32 Past Med/Surg History Medical History Asthma (Chronic) Gout (Chronic) Glaucoma (Resolved) Parkinson disease (Chronic) Asthma exacerbation (Acute 11/26/13) Cough (Acute) Dizziness (Acute) Sinusitis (Acute) CLL (chronic lymphocytic leukemia) Family History Other Family history non-contributory Social History marital status: Current Living Situation: Spouse Feels Safe at Home: Yes Smoking Status: Never smoker Review of Systems See HPI for pertinent positives & negatives. and A total of 10 systems reviewed and were otherwise negative Physical Exam Vital Signs Vital Signs - 24 hr 08/03/18 20:55 08/03/18 20:57 08/03/18 20:59 Temperature 37.4 C Temperature Source Oral Sepsis Recent Fever Within 48 Hours No Sepsis New/Unexplained Change in Mental Status No Sepsis Action Taken by Nursing No Action Required Pulse Rate 104 H 101 H 101 H Pulse Rate from SpO2 Sensor 103 H 102 H Respiratory Rate 26 H 24 29 H Blood Pressure 161/71 H 161/71 H Blood Pressure Mean 101 101 Pulse Oximetry 96 96 96 Oxygen Delivery Method Room Air 08/03/18 21:00 08/03/18 21:02 08/03/18 21:30 Temperature Temperature Source Sepsis Recent Fever Within 48 Hours Sepsis New/Unexplained Change in Mental Status Sepsis Action Taken by Nursing Pulse Rate 100 H 100 H 98 H Pulse Rate from SpO2 Sensor 104 H 101 H 97 H Respiratory Rate 24 20 21 Blood Pressure 157/108 H 153/73 H Blood Pressure Mean 124 99 Pulse Oximetry 96 95 99 Oxygen Delivery Method 08/03/18 22:00 08/03/18 22:18 08/03/18 22:30 Temperature Temperature Source Sepsis Recent Fever Within 48 Hours Sepsis New/Unexplained Change in Mental Status Sepsis Action Taken by Nursing Pulse Rate 109 H 107 H 108 H Pulse Rate from SpO2 Sensor 107 H 107 H 111 H Respiratory Rate 22 23 28 H Blood Pressure 163/87 H Blood Pressure Mean 112 Pulse Oximetry 97 94 94 Oxygen Delivery Method 08/03/18 22:31 08/03/18 23:00 08/03/18 23:30 Temperature Temperature Source Sepsis Recent Fever Within 48 Hours Sepsis New/Unexplained Change in Mental Status Sepsis Action Taken by Nursing Pulse Rate 106 H 105 H 102 H Pulse Rate from SpO2 Sensor 111 H 105 H 102 H Respiratory Rate 29 H 31 H 32 H Blood Pressure 150/99 H 155/89 H 143/80 H Blood Pressure Mean 116 111 101 Pulse Oximetry 95 95 94 Oxygen Delivery Method 08/04/18 00:00 Temperature Temperature Source Sepsis Recent Fever Within 48 Hours Sepsis New/Unexplained Change in Mental Status Sepsis Action Taken by Nursing Pulse Rate 96 H Pulse Rate from SpO2 Sensor 96 H Respiratory Rate 27 H Blood Pressure 142/74 H Blood Pressure Mean 96 Pulse Oximetry 94 Oxygen Delivery Method GENERAL: Mildly ill in appearance. EYE EXAM: Normal conjunctiva. PERRL, no anisocoria and EOM's grossly intact w/o pain. OROPHARYNX: Moist mucus membranes. NECK: Supple, no nuchal rigidity, no adenopathy, non-tender. no signs of meningismus. LUNGS: Coarse breath sounds throughout. Normal chest wall mechanics. HEART: Tachycardic and regular, no MRG. ABDOMEN: Abdomen soft, non-tender, normo-active bowel sounds, no masses, no rebound or guarding. BACK: No CVA TTP. SKIN: No rashes and no bruising. UPPER EXTREMITIES: Upper extremities are grossly normal besides a RUE tremor at baseline. LOWER EXTREMITIES: No pitting edema. No calf pain. Swelling more in right LE when compared to left. Negative Jessica's sign. NEURO EXAM: Cranial nerves II-XII grossly intact, normal speech, moves all 4 extremities on command w/o issue. RUE tremor at baseline. Course 2109: The patient was evaluated in room B09, and a complete history and physical examination were performed. 2245: I updated the patient and discussed the treatment plan with him and his . 2311: Dr. Gloria [facility] Hospitalist was made aware of the patient and he will be accepting him for further evaluation. Consultations Consultation #1: Dr. Gloria [facility] Hospitalist was made aware of the patient and he will be accepting him for further evaluation. Time: 23:11 Administered Medications Discontinued Medications Albuterol (Duoneb) 3 ml INH NOW STA Stop: 08/03/18 21:15 Last Admin: 08/03/18 21:26 Dose: 3 ml Documented by: [id number] Carbidopa/Levodopa (Sinemet 25/100 Mg) 2 tab PO NOW STA Stop: 08/03/18 21:15 Last Admin: 08/03/18 21:29 Dose: 2 tab Documented by: [id number] Sodium Chloride (Nss 1000ml) 1,000 mls @ 999 mls/hr IV .Q1H1M KAILA Stop: 08/03/18 22:15 Last Infusion: 08/03/18 23:04 Dose: 0 mls/hr Documented by: [id number] Admin: 08/03/18 21:26 Dose: 999 mls/hr Documented by: [id number] Levofloxacin/Dextrose (Levaquin/D5w) 750 mg in 150 mls @ 100 mls/hr IV NOW STA Stop: 08/03/18 23:08 Last Infusion: 08/03/18 23:41 Dose: 0 mls/hr Documented by: [id number] Admin: 08/03/18 22:17 Dose: 100 mls/hr Documented by: [id number] Vancomycin HCl 1,500 mg/ (Sodium Chloride) 530 mls @ 200 mls/hr IV NOW ONE Stop: 08/04/18 00:17 Last Admin: 08/03/18 22:17 Dose: 200 mls/hr Documented by: [id number] Piperacillin Sod/Tazobactam Sod (Zosyn) 4.5 gm in 120 mls @ 240 mls/hr IV NOW ONE Stop: 08/03/18 22:08 Last Infusion: 08/03/18 23:04 Dose: 0 mls/hr Documented by: [id number] Admin: 08/03/18 22:17 Dose: 240 mls/hr Documented by: [id number] Oseltamivir Phosphate (Tamiflu) 75 mg PO NOW STA Stop: 08/03/18 22:23 Last Admin: 08/03/18 22:31 Dose: 75 mg Documented by: [id number] Medical Decision Making Medical Records Attestation: I reviewed the patient's medical records. Home Medications Current Medication List: was personally reviewed by me Laboratory Data Attestation: I reviewed the patient's lab results. Result diagrams: 08/03/18 21:02 08/03/18 21:02 Lab Results 08/03/18 08/03/18 08/03/18 Range/Units 21:02 21:02 21:02 WBC 17.77 H (4.8-10.8) K/uL RBC 4.30 L (4.7-6.1) M/uL Hgb 13.5 L (14.0-18.0) g/dL Hct 38.7 L (42-52) % MCV 90.0 (80-100) fL MCH 31.4 (25-34) pg MCHC 34.9 (32-36) g/dL RDW Std Deviation 48.3 H (36.4-46.3) fL RDW Coeff of Marco 14.6 H (11.5-14.5) % Plt Count 207 (130-400) K/uL MPV 9.5 (7.4-10.4) fL Immature Gran % (Auto) 0.3 % Neut % (Auto) 72.0 % Lymph % (Auto) 20.9 % Valley % (Auto) 6.5 % Eos % (Auto) 0.2 % Baso % (Auto) 0.1 % Immature Gran # (Auto) 0.05 H (0.00-0.02) K/uL Neut # (Auto) 12.80 H (1.4-6.5) K/uL Lymph # (Auto) 3.72 H (1.2-3.4) K/uL Valley # (Auto) 1.16 H (0.11-0.59) K/uL Eos # (Auto) 0.03 (0-0.5) K/uL Baso # (Auto) 0.01 (0-0.2) K/uL PT 10.2 (9.0-12.0) Seconds INR 1.0 (0.9-1.1) APTT 26.7 (21.0-31.0) Seconds PTT Ratio 1.0 VBG pH (7.36-7.41) VBG pCO2 (38-50) mmHg VBG pO2 mmHg VBG HCO3 mmol/L VBG O2 Saturation % VBG Base Excess mEq/L Barometric Pressure mm/Hg Sodium 141 (136-145) mmol/L Potassium 3.5 (3.5-5.1) mmol/L Chloride 106 (98-107) mmol/L Carbon Dioxide 24 (21-32) mmol/L Anion Gap 11.0 (3-11) BUN 19 H (7-18) mg/dl Creatinine 0.87 (0.6-1.4) mg/dl Est Cr Clr Drug Dosing 62.1 ml/min Est GFR ( Amer) 91.2 Est GFR (Non-Af Amer) 78.7 BUN/Creatinine Ratio 22.3 H (10-20) Glucose 152 H (70-99) mg/dl Calcium 9.1 (8.5-10.1) mg/dl Total Bilirubin 0.3 (0.2-1) mg/dl AST 31 (15-37) U/L ALT 33 (12-78) U/L Alkaline Phosphatase 127 H (45-117) U/L Troponin I 0.016 (0-0.045) ng/ml Total Protein 7.3 (6.4-8.2) gm/dl Albumin 3.3 L (3.4-5.0) gm/dl Globulin 4.0 (2.5-4.0) gm/dl Albumin/Globulin Ratio 0.8 L (0.9-2) Urine Color Urine Appearance (Clear) Urine pH (4.5-7.5) Ur Specific Clarington (1.000-1.030) Urine Protein (Negative) Urine Glucose (UA) (Negative) Urine Ketones (Negative) Urine Blood (Negative) Urine Nitrite (Negative) Urine Bilirubin (Negative) Urine Urobilinogen (Negative) Ur Leukocyte Esterase (Negative) Influenza Type A (PCR) (Neg) Influenza Type B (PCR) (Neg) 08/03/18 08/03/18 08/03/18 Range/Units 21:02 21:50 22:21 WBC (4.8-10.8) K/uL RBC (4.7-6.1) M/uL Hgb (14.0-18.0) g/dL Hct (42-52) % MCV (80-100) fL MCH (25-34) pg MCHC (32-36) g/dL RDW Std Deviation (36.4-46.3) fL RDW Coeff of Marco (11.5-14.5) % Plt Count (130-400) K/uL MPV (7.4-10.4) fL Immature Gran % (Auto) % Neut % (Auto) % Lymph % (Auto) % Valley % (Auto) % Eos % (Auto) % Baso % (Auto) % Immature Gran # (Auto) (0.00-0.02) K/uL Neut # (Auto) (1.4-6.5) K/uL Lymph # (Auto) (1.2-3.4) K/uL Valley # (Auto) (0.11-0.59) K/uL Eos # (Auto) (0-0.5) K/uL Baso # (Auto) (0-0.2) K/uL PT (9.0-12.0) Seconds INR (0.9-1.1) APTT (21.0-31.0) Seconds PTT Ratio VBG pH 7.44 H (7.36-7.41) VBG pCO2 36 L (38-50) mmHg VBG pO2 38 mmHg VBG HCO3 24 mmol/L VBG O2 Saturation 72.4 % VBG Base Excess 0 mEq/L Barometric Pressure 735.3 mm/Hg Sodium (136-145) mmol/L Potassium (3.5-5.1) mmol/L Chloride (98-107) mmol/L Carbon Dioxide (21-32) mmol/L Anion Gap (3-11) BUN (7-18) mg/dl Creatinine (0.6-1.4) mg/dl Est Cr Clr Drug Dosing ml/min Est GFR ( Amer) Est GFR (Non-Af Amer) BUN/Creatinine Ratio (10-20) Glucose (70-99) mg/dl Calcium (8.5-10.1) mg/dl Total Bilirubin (0.2-1) mg/dl AST (15-37) U/L ALT (12-78) U/L Alkaline Phosphatase (45-117) U/L Troponin I (0-0.045) ng/ml Total Protein (6.4-8.2) gm/dl Albumin (3.4-5.0) gm/dl Globulin (2.5-4.0) gm/dl Albumin/Globulin Ratio (0.9-2) Urine Color Yellow Urine Appearance Clear (Clear) Urine pH 6.0 (4.5-7.5) Ur Specific [place] 1.013 (1.000-1.030) Urine Protein Negative (Negative) Urine Glucose (UA) Negative (Negative) Urine Ketones Negative (Negative) Urine Blood Negative (Negative) Urine Nitrite Negative (Negative) Urine Bilirubin Negative (Negative) Urine Urobilinogen Negative (Negative) Ur Leukocyte Esterase Negative (Negative) Influenza Type A (PCR) Pos for Influ A A* (Neg) Influenza Type B (PCR) Neg for Influ B (Neg) Imaging Data Radiologist's Impression: Radiology results as stated below per my review and the radiologist's interpretation: XR chest 1V portable HISTORY: Dyspnea COMPARISON: Chest 03/01/2018. FINDINGS: No pneumothorax. No pleural effusions. The heart remains borderline enlarged. Left lung is clear. Old, healed right-sided rib fractures. Patchy right basilar densities. IMPRESSION: Patchy right basilar densities which are new from the prior study. This could represent atelectasis or pneumonia. Electronically signed by: Anjel Ludwig M.D. 08/03/2018 9:33 PM ECG Data Attestation: I personally reviewed and interpreted this ECG as follows: Indication: SOB/dyspnea Rate (beats per minute): 103 Rhythm: sinus tachycardia Findings: + other (Wide QRS), + RBBB and + left axis deviation; no nonspecific- ST abn and no T-wave inversion Blood Pressure Blood Pressure Findings: Elevated blood pressure Blood Pressure Disposition: further management by hospitalist MDM Narrative The patient is an 87 year old male w/ PMHx of Parkinson's disease, HT N, Gout, and HLD who presents to the ED w/ CC of a constant productive cough beginning about 4 days ago. Differential diagnoses includes but is not limited to pneumonia, bronchitis, COPD/Asthma exacerbation, pneumothorax, pulmonary embolism, congestive heart failure, acute coronary syndrome Patient was seen and evaluated the bedside. The patient reportedly has had some cough and did have a recent admission and discharge from [facility]. The patient does have coarse breath sounds throughout. The patient is tachycardic. The patient did a blood work completed along with a chest x-ray was given IV fluids and had a flu swab obtained. The patient does have a white count of 17 but the patient does have a prior history of CLL. The patient was covered with broad-spectrum antibiotics given the concern for all of care associated pneumonia. The patient also did have positive influenza was given Tamiflu. The patient's has a blood gas which shows no CO2 retention and a fairly normal pH. Kidney function is otherwise unremarkable but may have some prerenal azotemia. The patient did receive IV fluids. Urinalysis is negative for infection. Impression & Plan Hospital acquired PNA, Influenza A Discharge Plan Visit Data Chief Complaint: Cough Stated Complaint: WEAKNESS, MENTAL STATUS CHANGE ED Provider: Van Moss Discharge Problem: Hospital acquired PNA, Influenza A Patient Disposition: Being Evaluated by Hospitalist Forms Stand Alone Forms: My [facility] Prescriptions Prescriptions: No Action multivitamin Tablet 1 tab PO DAILY RF: 0 atorvastatin [Lipitor] 40 mg Tablet 40 mg PO DAILY RF: 0 potassium chloride 10 mEq Tablet Extended Release 10 meq PO DAILY RF: 0 aspirin 81 mg Tablet,Delayed Release (Dr/Ec) 81 mg PO DAILY RF: 0 ranitidine HCl [Zantac] 150 mg Tablet 150 mg PO BID RF: 0 metoprolol tartrate 50 mg Tablet 75 mg PO BID RF: 0 lansoprazole [Prevacid] 15 mg Capsule,Delayed Release(Dr/Ec) 15 mg PO DAILY RF: 0 montelukast [Singulair] 10 mg Tablet 10 mg PO PM RF: 0 lisinopril 5 mg Tablet 5 mg PO DAILY RF: 0 albuterol sulfate [ProAir HFA] 90 mcg/actuation Hfa Aerosol Inhaler 2 puff INHALATION Q4H PRN (Reason: Wheezing) RF: 0 carbidopa-levodopa [Sinemet] 25-100 mg Tablet 2 tab PO DIRECTED RF: 0 loratadine [Claritin] 10 mg Tablet 10 mg PO DAILY RF: 0 cranberry 500 mg Capsule 1,000 mg PO DAILY RF: 0 dutasteride [Avodart] 0.5 mg Capsule 0.5 mg PO DAILY RF: 0 cinnamon bark [Cinnamon] 500 mg Capsule 1 tab PO DAILY RF: 0 Systane (PF) 0.4-0.3 % Drop[place]rette 1 drp OPHTHALMIC (EYE) DAILY RF: 0 rasagiline 1 mg Tablet 1 mg PO DAILY RF: 0 cholecalciferol (vitamin D3) [Vitamin D3] 2,000 unit Capsule 2,000 unit PO DAILY RF: 0 Una-3 Fish Oil 300-1,000 mg Capsule 1,400 mg PO DAILY RF: 0 turmeric 400 mg Capsule 400 mg PO DAILY RF: 0 fluticasone propion-salmeterol [Advair Diskus] 250-50 mcg/dose blister with device 1 puff inhalation BID RF: 0 ibuprofen 200 mg Tablet 200 mg PO Q6H RF: 0 Referrals Referrals: Anderson Snyder MD [Primary Care Provider] - The scribe's documentation has been prepared under my direction and personally reviewed by me in its entirety. I confirm that the note above accurately reflects all work, treatment, procedures, and medical decision making performed by me.
[2018-08-04] MEDS ORDERED: ALUMINUM/MAGNESIUM SUSP 30 ML UDC PO PRN (02:51)
[2018-08-04] MEDS ORDERED: PIPERACILL/TAZOBAC CONSULT ACTIVE PRN (02:51)
[2018-08-04] MEDS ORDERED: VANCOMYCIN HCL 1,000 MG in SODIUM CHLORIDE 0.9% 250 ML IV SCH (02:51)
[2018-08-04] MEDS ORDERED: PIPERACILLIN/TAZOBACTAM 3.375 GM in DEXTROSE 5% 100 ML IV SCH (02:51)
[2018-08-04] MEDS ORDERED: POLYETHYLENE (MIRALAX) 17 GM PACK PO PRN (02:51)
[2018-08-04] MEDS ORDERED: VANCOMYCIN CONSULT ACTIVE PRN (02:51)
[2018-08-04] MEDS: SODIUM CHLORIDE 0.9% 1000ML 1,000 ML IV SCH ×2 (03:51→17:13)
[2018-08-04] MEDS: PIPERACILLIN/TAZOBACTAM 3.375 GM in DEXTROSE 5% 100 ML IV SCH ×3 (03:51→20:13)
[2018-08-04] MEDS: METOPROLOL TARTRATE 50 MG TAB PO SCH ×3 (03:52→20:28)
[2018-08-04 06:16] LABS: Hemoglobin 12.1 g/dL (14.0-18.0); Mean Corpuscular Hgb Conc 33.6 g/dL (32-36); Mean Corpuscular Volume 91.6 fL (80-100); Platelet Count 160 K/uL (130-400); RDW Coefficient of Variation 14.9 % (11.5-14.5); RDW Standard Deviation 50.3 fL (36.4-46.3); Red Blood Count 3.93 M/uL (4.7-6.1); White Blood Count 20.75 K/uL (4.8-10.8)
[2018-08-04 06:50] LABS: BUN Creatinine Ratio 20.2 (10-20); Calcium 8.3 mg/dl (8.5-10.1); Creatinine Clr Calc Pharmacy 67.5 ml/min; Est GFR (African American) 94.4; Est GFR (Non-African American) 81.5; Potassium 3.5 mmol/L (3.5-5.1)
[2018-08-04] MEDS: AVODART~ORDER AWAITING ACTION SCH ×3 (06:51→23:31)
[2018-08-04 07:34] LABS: Basophils # (auto) 0.01 K/uL (0-0.2); Immature Granulocytes # (auto) 0.06 K/uL (0.00-0.02); Immature Granulocytes % (auto) 0.3 %; Lymphocytes # (auto) 6.71 K/uL (1.2-3.4); Lymphocytes % (auto) 32.3 %; Monocytes # (auto) 1.28 K/uL (0.11-0.59); Monocytes % (auto) 6.2 %; Neutrophils # (auto) 12.69 K/uL (1.4-6.5); Neutrophils % (auto) 61.2 %
[2018-08-04] MEDS: ALBUT/IPRATROP 3MG/0.5MG NEB 3 ML VIAL NEB SCH ×4 (08:09→20:15)
[2018-08-04] MEDS: LORATADINE 10 MG TAB PO SCH (08:33)
[2018-08-04] MEDS: MULTIVITAMIN TAB PO SCH (08:34)
[2018-08-04] MEDS: ENOXAPARIN INJ 40 MG/0.4 ML SYR SQ SCH (08:34)
[2018-08-04] MEDS: PANTOprazole 40 MG TAB PO SCH (08:34)
[2018-08-04] MEDS: ASPIRIN 81 MG ECTAB PO SCH (08:34)
[2018-08-04] MEDS: CARBIDOPA/LEVODOPA 25/100MG TAB PO SCH ×4 (08:34→20:26)
[2018-08-04] MEDS: ARTIFICIAL TEARS OP SCH (08:34)
[2018-08-04] MEDS: POTASSIUM CHLORIDE 10 MEQ TABCR PO SCH (08:34)
[2018-08-04] MEDS: CHOLECALCIFEROL 1,000 UNITS TAB PO SCH (08:34)
[2018-08-04] MEDS: ATORVASTATIN 40 MG TAB PO SCH (08:34)
[2018-08-04] MEDS: LISINOPRIL 5 MG TAB PO SCH (08:34)
[2018-08-04] MEDS: OSELTAMIVIR PHOSPHATE 75 MG CAP PO SCH ×2 (08:34→20:29)
[2018-08-04] MEDS: FLUTICASONE/SALMETEROL 250/50 (ADVAIR) 14 PUFF/1 INHALER INH SCH ×2 (09:09→20:26)
--- NOTE | 2018-08-04 10:10 | Pharmacy Report ---
Pharmacy Abx Initial Consult - Date of Service August 04, 2018 - Pharmacy Dosing Scope Date of Consult: 08-03 Consultation requested by: Dr. Aviles Pharmacy is consulted to initiate vancomycin/zosyn dosing therapy, order appropriate labs and adjust drug dose/frequency. - Subjective The patient is a 87 year old M admitted on 08/04/18 00:39. - Objective Height: 5 ft 9 in Weight: 75.7 kg Lab Results (24hrs): Laboratory Tests (24 Hours) 08/04/18 08/04/18 08/03/18 06:04 06:04 21:02 WBC 20.75 H Neut # (Auto) 12.69 H Creatinine 0.80 0.87 Est Cr Clr Drug Dosing 67.5 62.1 08/03/18 21:02 WBC 17.77 H Neut # (Auto) 12.80 H Creatinine Est Cr Clr Drug Dosing Micro Results: 08/03/18 21:55 Blood Culture - Pending Blood 08/03/18 21:50 Blood Culture - Pending Blood - Risk Factors for Resistance * Resident in a retirement or extended-care facility: discharged from [facility] on [facility]01 - Assessment & Plan Assessment 87 year old male admitted with possible pneumonia. PMHx signifcant for CLL, htn, hld, asthma, gout, GERD. Presenting with weakness, leukocytosis on admission. Recently at [facility] x 2 weeks. Blood cultures x 2 are pending. Nasal swab ordered. Positive influenza A - on tamiflu Plan Vancomcycin: * Patient received vancomycin 1500 mg (~20 mg/kg) x 1 last evening * Will start vancomycin 1250 mg q 14 hrs (~16 mg/kg) to achieve an estimated trough of ~15-20 mcg/ml (goal for pneumonia) * Estimated kinetics: t1/2~12 hrs, ke~0.06 hr-1, CrCl ~67 - appears to be close to baseline scr of 0.9 mg/dL. Of note, weight inaccurate in system this am, had nurse reweigh patient at ~76 kg * Will plan to obtain trough in next 1-2 days or sooner if renal function changes; will follow MRSA nasal swab and deescalate as appropriate Zosyn: * 3.375 gm iv q 8 hrs - appropriate for CrCl >20 ml/min ; no change today Pharmacy will continue to follow and will adjust dose/frequency as necessary. Thank you.
[2018-08-04] MEDS: VANCOMYCIN HCL 1,250 MG in SODIUM CHLORIDE 0.9% 250 ML IV SCH (11:57)
--- NOTE | 2018-08-04 14:55 | Family Medicine Progress Note ---
Date of Service August 04, 2018 Assessment & Plan (1) Hospital acquired PNA: 87yoM with hx of CLL, HTN, HLD, Parkinson's, asthma, glaucoma, gout, GERD, BPH presents with weakness x 1 day. Admitted for influenza A and concern of RLL HCAP as pt was in [facility] for 2 weeks referred by PCP for generalized weakness, discharged on 08/01. HCAP: - improving weakness and cough -remains Afebrile, WBC 20 ( baseline 12 per patient _ -CXR patchy R basilar densities new atelectasis vs. PNA -BCx2 pending -Received levaquin, vanc and zosyn x 1 in ED -Continue Vanc and Zosyn -Duoneb QID Kristina Influenza A -Continue Oseltamivir Bilateral LE edema: concern for CHF vs. venous stasis - Pt denies hx of heart failure and reports chronic - Echo 08/04: mild concentric LVH, EF 55-60%, mild Aortic valve sclerosis without significant stenosis, mild to moderate mitral regurgitation Hx of Asthma -Continue home Advair, albuterol inh prn, loratidine and singulair CV: HTN/HLD -Continue home metoprolol, lisinopril, aspirin and lipitor Parkinson's Disease -Continue home Sinemet and Rasagiline GERD -Continue home prevacid and ranitidine BPH -Continue home dutasteride DVT prop: Lovenox SQ daily Code: Full Dispo: med/surg telemetry (2) Influenza A: (3) Asthma: (4) Gout: (5) Glaucoma: (6) Parkinson disease: (7) HTN (hypertension): Supervising Physician Co-Signing Physician Notes Patient seen and examined with Dr. Gomes. Agree with documented history, exam, assessment and plan of care. In brief, Mr. Chiang is an 87 year old male with CLL (baseline WBC ~12), HTN, HLD, BPH, asthma and PD admitted with HCAP and influenza A. He is still coughing but denies shortness of breath and chest pain. Denies fevers. 1. HCAP. continue vanc, zosyn, monitor for fevers, increasing leukocytosis. 2. influenza A. Day 2 of osetlamivir. 3. bilateral LE edema. ?secondary to mild HFpEF. Echo here with preserved EF 55- 60% and mild LVH. 4. asthma. continue home advair, albuterol nebs, claritin and singulair. 5. CLL. stable. chronic leukocytosis. baseline white count ~12. Other chronic issues are stable. Dispo: pending clinical improvement. May require SNF following discharge. Appreciate PT/OT input. Subjective No acute events. Patient reports his shortness of breath of cough are improving. He denies chest pain, fevers, chills, n/v, diarrhea. He is tolerating diet. Review of Systems Constitutional: no fever, no chills, no fatigue and no weakness Respiratory: + cough; no dyspnea and no wheezing Cardiovascular: no chest pain, no palpitations, no edema and no calf pain Gastrointestinal: no abdominal pain, no nausea, no vomiting and no change in stools Physical Exam Physical Exam: GENERAL APPEARANCE: alert and cooperative, and appears to be in no acute distress. HEAD: normocephalic. EYES: PERRL, EOMI, vision is grossly intact. EARS: External auditory canals normal, hearing grossly intact. CARDIAC: Normal S1 and S2. No S3, S4 or murmurs. Rhythm is regular LUNGS:RLL rhonchi, NO wheezing or diminished breath sounds. ABDOMEN: Positive bowel sounds. Soft, nondistended, nontender. No guarding or rebound. No masses. LOWER EXTREMITY: rody LE edema Results & Data Vital Signs (Past 12 Hours) Vital Signs Temp Pulse Pulse Resp BP Pulse Ox 08/04/18 12:14 36.6 C 68 20 122/70 94 08/04/18 11:18 68 18 94 08/04/18 08:12 87 18 97 08/04/18 08:00 37.5 C 90 87 18 169/87 H 95 08/04/18 04:32 89
[2018-08-04] MEDS: MONTELUKAST SODIUM 10 MG TABLET PO SCH (20:29)
[2018-08-05] MEDS: VANCOMYCIN HCL 1,250 MG in SODIUM CHLORIDE 0.9% 250 ML IV SCH (01:12)
[2018-08-05] MEDS: PIPERACILLIN/TAZOBACTAM 3.375 GM in DEXTROSE 5% 100 ML IV SCH ×3 (03:52→20:24)
[2018-08-05] MEDS: ACETAMINOPHEN 325 MG TAB PO PRN ×2 (04:07→20:36)
[2018-08-05] MEDS: ALBUT/IPRATROP 3MG/0.5MG NEB 3 ML VIAL NEB SCH ×4 (07:03→19:44)
[2018-08-05] MEDS: AVODART~ORDER AWAITING ACTION SCH (07:29)
[2018-08-05 08:14] LABS: Hematocrit (blood only) 35.5 % (42-52); Hemoglobin 11.7 g/dL (14.0-18.0); Mean Corpuscular Volume 92.2 fL (80-100); Platelet Count 167 K/uL (130-400); Red Blood Count 3.85 M/uL (4.7-6.1); White Blood Count 15.49 K/uL (4.8-10.8)
[2018-08-05] MEDS: SODIUM CHLORIDE 0.9% 1000ML 1,000 ML IV SCH ×2 (08:17→20:28)
[2018-08-05] MEDS: FLUTICASONE/SALMETEROL 250/50 (ADVAIR) 14 PUFF/1 INHALER INH SCH ×2 (08:18→20:25)
[2018-08-05] MEDS: MULTIVITAMIN TAB PO SCH (08:19)
[2018-08-05] MEDS: ARTIFICIAL TEARS OP SCH (08:19)
[2018-08-05] MEDS: LISINOPRIL 5 MG TAB PO SCH (08:20)
[2018-08-05] MEDS: ASPIRIN 81 MG ECTAB PO SCH (08:20)
[2018-08-05] MEDS: ATORVASTATIN 40 MG TAB PO SCH (08:20)
[2018-08-05] MEDS: PANTOprazole 40 MG TAB PO SCH (08:20)
[2018-08-05] MEDS: OSELTAMIVIR PHOSPHATE 75 MG CAP PO SCH ×2 (08:20→20:26)
[2018-08-05] MEDS: LORATADINE 10 MG TAB PO SCH (08:20)
[2018-08-05] MEDS: POTASSIUM CHLORIDE 10 MEQ TABCR PO SCH (08:21)
[2018-08-05] MEDS: CARBIDOPA/LEVODOPA 25/100MG TAB PO SCH ×4 (08:21→20:25)
[2018-08-05] MEDS: CHOLECALCIFEROL 1,000 UNITS TAB PO SCH (08:21)
[2018-08-05] MEDS: METOPROLOL TARTRATE 50 MG TAB PO SCH ×2 (08:22→20:33)
[2018-08-05] MEDS: ENOXAPARIN INJ 40 MG/0.4 ML SYR SQ SCH (08:23)
[2018-08-05 08:49] LABS: BUN Creatinine Ratio 17.1 (10-20); Calcium 8.9 mg/dl (8.5-10.1); Creatinine Clr Calc Pharmacy 62.1 ml/min; Est GFR (African American) 91.2; Est GFR (Non-African American) 78.7; Potassium 3.5 mmol/L (3.5-5.1)
[2018-08-05 09:00] LABS: Basophils # (auto) 0.02 K/uL (0-0.2); Basophils % (auto) 0.1 %; Eosinophils # (auto) 0.05 K/uL (0-0.5); Eosinophils % (auto) 0.3 %; Immature Granulocytes # (auto) 0.06 K/uL (0.00-0.02); Immature Granulocytes % (auto) 0.4 %; Lymphocytes # (auto) 5.28 K/uL (1.2-3.4); Lymphocytes % (auto) 34.1 %; Monocytes # (auto) 1.08 K/uL (0.11-0.59); Neutrophils % (auto) 58.1 %
--- NOTE | 2018-08-05 17:14 | Family Medicine Progress Note ---
Date of Service August 05, 2018 Assessment & Plan (1) Hospital acquired PNA: 87yoM with hx of CLL, HTN, HLD, Parkinson's, asthma, glaucoma, gout, GERD, BPH presents with weakness x 1 day. Admitted for influenza A and concern of RLL HCAP as pt was in [facility] [facility] referred by PCP for generalized weakness, discharged on 08/01. HCAP: - improving weakness and cough -remains Afebrile, WBC trending down -CXR patchy R basilar densities new atelectasis vs. PNA -BCx2 NO growth to date -Received Levaquin, Vanc and Zosyn x 1 in ED -D/C Vanc today (MRSA swab negative) , Continue Zosyn -Duoneb QID Kristina Influenza A -Continue Oseltamivir Bilateral LE edema: concern for CHF vs. venous stasis - Pt denies hx of heart failure and reports chronic - Echo 08/04: mild concentric LVH, EF 55-60%, mild Aortic valve sclerosis without significant stenosis, mild to moderate mitral regurgitation Hx of Asthma -Continue home Advair, albuterol inh prn, loratidine and singulair CV: HTN/HLD -Continue home metoprolol, lisinopril, aspirin and lipitor Parkinson's Disease -Continue home Sinemet and Rasagiline GERD -Continue home prevacid and ranitidine BPH -Continue home dutasteride DVT prop: Lovenox SQ daily Code: Full Dispo: med/surg telemetry (2) Influenza A: (3) Asthma: (4) Gout: (5) Glaucoma: (6) Parkinson disease: (7) HTN (hypertension): Supervising Physician Co-Signing Physician Notes Patient seen and examined with Dr. Gomes. Agree with documented history, exam, assessment and plan of care. In brief, Mr. Chiang is an 87 year old male with CLL (baseline WBC ~12), HTN, HLD, BPH, asthma and PD admitted with HCAP and influenza A. He is still coughing. Denies fevers, chills, chest pain, shortness of breath. 1. HCAP. d/c vanc (MRSA negative). Continue zosyn, monitor for fevers, inc reasing leukocytosis. WBC 15. d/c IVFs. 2. influenza A. Day 3 of osetlamivir. 3. bilateral LE edema. ?secondary to mild HFpEF. Echo here with preserved EF 55- 60% and mild LVH. Stable. Monitor. 4. asthma. continue home advair, albuterol nebs, claritin and singulair. 5. CLL. stable. chronic leukocytosis. baseline white count ~12. 6. HTN. Some elevated systolic pressures. Lisinopril 5mg, metoprolol 75mg BID. Other chronic issues are stable. Dispo: pending clinical improvement. SNF recommended by PT following discharge. CM consult for discharge coordination. Subjective Patient reports significant improvement from arrival. SOB and cough are getting better. He denies chest pain, fevers, chills, n/v. He is tolerating foods and passing stools. Review of Systems Constitutional: no fever, no chills, no fatigue and no weakness Respiratory: no cough, no dyspnea and no wheezing Cardiovascular: no chest pain, no palpitations, no edema and no calf pain Gastrointestinal: no abdominal pain, no nausea, no vomiting and no change in stools Physical Exam Physical Exam: GENERAL APPEARANCE:alert and cooperative, and appears to be in no acute distress. HEAD: normocephalic. EYES: PERRL, EOMI. vision is grossly intact. EARS: hearing grossly intact. CARDIAC: Normal S1 and S2. No S3, S4 or murmurs. Rhythm is regular LUNGS: coarse breath sounds rody, no wheezing or diminished breath sounds. ABDOMEN: Positive bowel sounds. Soft, nondistended, nontender. No guarding or rebound. No masses. LOWER EXTREMITY: no edema NEUROLOGICAL: CN II-XII grossly intact. moves extremities Results & Data Vital Signs (Past 12 Hours) Vital Signs Temp Pulse Pulse Pulse Resp BP BP 08/05/18 16:00 36.4 C L 92 H 88 16 138/72 08/05/18 15:08 08/05/18 14:57 78 18 08/05/18 11:35 36.4 C L 76 18 154/95 H 08/05/18 11:07 76 17 08/05/18 09:50 83 08/05/18 07:29 36.8 C 87 18 160/69 H 08/05/18 07:04 81 19 Pulse Ox 08/05/18 16:00 96 08/05/18 15:08 99 08/05/18 14:57 95 08/05/18 11:35 08/05/18 11:07 96 08/05/18 09:50 08/05/18 07:29 98 08/05/18 07:04 95
[2018-08-05] MEDS: MONTELUKAST SODIUM 10 MG TABLET PO SCH (20:26)
[2018-08-05] MEDS: DUTASTERIDE 0.5 MG CAPSULE PO SCH (20:27)
[2018-08-06] MEDS ORDERED: COUGH DROP (SUGAR FREE) LOZ 24 LOZ/1 BOX BUCCAL PRN (00:30)
[2018-08-06] MEDS ORDERED: COUGH DROP (SUGAR FREE) LOZ 24 LOZ/1 BOX BUCCAL ONE (00:39)
[2018-08-06] MEDS: PIPERACILLIN/TAZOBACTAM 3.375 GM in DEXTROSE 5% 100 ML IV SCH ×3 (03:57→20:12)
[2018-08-06] MEDS: ALBUT/IPRATROP 3MG/0.5MG NEB 3 ML VIAL NEB SCH ×2 (04:13→07:05)
[2018-08-06 06:58] LABS: Creatinine Clr Calc Pharmacy 63.5 ml/min; Est GFR (African American) 92.1; Est GFR (Non-African American) 79.5
[2018-08-06 07:21] LABS: Hematocrit (blood only) 35.9 % (42-52); Mean Corpuscular Hgb Conc 33.4 g/dL (32-36); Mean Corpuscular Volume 91.8 fL (80-100); Mean Platelet Volume 9.2 fL (7.4-10.4); Platelet Count 179 K/uL (130-400); RDW Coefficient of Variation 15.1 % (11.5-14.5); Red Blood Count 3.91 M/uL (4.7-6.1); White Blood Count 13.93 K/uL (4.8-10.8)
[2018-08-06 07:23] LABS: BUN Creatinine Ratio 17.3 (10-20); Calcium 8.7 mg/dl (8.5-10.1); Potassium 3.7 mmol/L (3.5-5.1)
[2018-08-06 07:54] LABS: Basophils # (auto) 0.02 K/uL (0-0.2); Basophils % (auto) 0.1 %; Eosinophils # (auto) 0.12 K/uL (0-0.5); Eosinophils % (auto) 0.9 %; Immature Granulocytes # (auto) 0.04 K/uL (0.00-0.02); Immature Granulocytes % (auto) 0.3 %; Lymphocytes # (auto) 5.26 K/uL (1.2-3.4); Lymphocytes % (auto) 37.8 %; Monocytes # (auto) 1.27 K/uL (0.11-0.59); Monocytes % (auto) 9.1 %; Neutrophils # (auto) 7.22 K/uL (1.4-6.5); Neutrophils % (auto) 51.8 %
[2018-08-06] MEDS: SODIUM CHLORIDE 0.9% 1000ML 1,000 ML IV SCH ×2 (09:07→20:41)
[2018-08-06] MEDS: FLUTICASONE/SALMETEROL 250/50 (ADVAIR) 14 PUFF/1 INHALER INH SCH ×2 (09:08→20:35)
[2018-08-06] MEDS: POTASSIUM CHLORIDE 10 MEQ TABCR PO SCH (09:08)
[2018-08-06] MEDS: ASPIRIN 81 MG ECTAB PO SCH (09:08)
[2018-08-06] MEDS: LISINOPRIL 5 MG TAB PO SCH (09:08)
[2018-08-06] MEDS: OSELTAMIVIR PHOSPHATE 75 MG CAP PO SCH ×2 (09:09→20:36)
[2018-08-06] MEDS: CARBIDOPA/LEVODOPA 25/100MG TAB PO SCH ×4 (09:09→20:12)
[2018-08-06] MEDS: CHOLECALCIFEROL 1,000 UNITS TAB PO SCH (09:09)
[2018-08-06] MEDS: ATORVASTATIN 40 MG TAB PO SCH (09:09)
[2018-08-06] MEDS: ENOXAPARIN INJ 40 MG/0.4 ML SYR SQ SCH (09:10)
[2018-08-06] MEDS: PANTOprazole 40 MG TAB PO SCH (09:11)
[2018-08-06] MEDS: MULTIVITAMIN TAB PO SCH (09:11)
[2018-08-06] MEDS: METOPROLOL TARTRATE 50 MG TAB PO SCH ×2 (09:12→20:35)
[2018-08-06] MEDS: LORATADINE 10 MG TAB PO SCH (09:12)
[2018-08-06] MEDS: ARTIFICIAL TEARS OP SCH (09:13)
[2018-08-06] MEDS: RASAGILINE 1 MG PO SCH (09:14)
--- NOTE | 2018-08-06 12:43 | Family Medicine Progress Note ---
Date of Service August 06, 2018 Assessment & Plan (1) Hospital acquired PNA: 87yoM with hx of CLL, HTN, HLD, Parkinson's, asthma, glaucoma, gout, GERD, BPH presents with weakness x 1 day. Admitted for influenza A and concern of RLL HCAP as pt was in [facility] for 2 weeks referred by PCP for generalized weakness, discharged on 08/01. HCAP: - improving weakness and cough/sob -remains Afebrile, WBC trending down -CXR patchy R basilar densities new atelectasis vs. PNA -BCx2 NO growth to date -Received Levaquin, Vanc and Zosyn x 1 in ED -D/C Vanc today (MRSA swab negative) , Continue Zosyn, Plan to convert to PO prior to dishcarge -Duoneb QID Kristina Influenza A -Continue Oseltamivir Bilateral LE edema: concern for CHF vs. venous stasis - Pt denies hx of heart failure and reports chronic - Echo 08/04: mild concentric LVH, EF 55-60%, mild Aortic valve sclerosis without significant stenosis, mild to moderate mitral regurgitation Hx of Asthma -Continue home Advair, albuterol inh prn, loratidine and singulair CV: HTN/HLD -Continue home metoprolol, lisinopril, aspirin and lipitor Parkinson's Disease -Continue home Sinemet and Rasagiline GERD -Continue home prevacid and ranitidine BPH -Continue home dutasteride DVT prop: Lovenox SQ daily Code: Full Dispo: Per PT/OT, inpatient rehab recommended , case management alerted (2) Influenza A: (3) Asthma: (4) Gout: (5) Glaucoma: (6) Parkinson disease: (7) HTN (hypertension): Supervising Physician Co-Signing Physician Notes Patient seen and examined with Dr. Gomes. Agree with documented history, exam, assessment and plan of care. In brief, Mr. Chiang is an 87 year old male with CLL (baseline WBC ~12), HTN, HLD, BPH, asthma and PD admitted with HCAP and influenza A. He is still coughing. Denies fevers, chills, chest pain, shortness of breath. 1. HCAP. d/c vanc (MRSA negative). On Zosyn, transition to oral abx in anticipation of discharge to SNF, monitor for fevers, increasing leukocytosis. WBC 13. 2. influenza A. Day 3 of osetlamivir. 3. bilateral LE edema. ?secondary to mild HFpEF. Echo here with preserved EF 55- 60% and mild LVH. Stable. Monitor. 4. asthma. continue home advair, albuterol nebs, claritin and singulair. 5. CLL. stable. chronic leukocytosis. baseline white count ~12. 6. HTN. Some elevated systolic pressures. Lisinopril 5mg, metoprolol 75mg BID. Other chronic issues are stable. Dispo: Awaiting bed for SNF discharge. Subjective No acute events overnight. Patient reports overall improvement including shortness of breath, cough. He denies fevers, chills, chest pain, n/v, diarrhea. He is tolerating food and reports regular bowel movements. Review of Systems Constitutional: no fever, no chills, no fatigue and no weakness Respiratory: + cough; no dyspnea and no wheezing Cardiovascular: no chest pain, no palpitations and no edema Gastrointestinal: no abdominal pain, no nausea, no vomiting and no change in stools Physical Exam Physical Exam: GENERAL APPEARANCE: alert and cooperative, and appears to be in no acute distress. EYES: PERRL, EOMI. vision is grossly intact. NECK: Neck supple, non-tender without lymphadenopathy CARDIAC: Normal S1 and S2. No S3, S4 or murmurs. Rhythm is regular LUNGS:mild coarse breath sounds rody, No wheezing or diminished breath sounds. ABDOMEN: Positive bowel sounds. Soft, nondistended, nontender. No guarding or r ebound. No masses. LOWER EXTREMITY: no edema NEUROLOGICAL: CN II-XII grossly intact. moves extremties Results & Data Vital Signs (Past 12 Hours) Vital Signs Temp Pulse Pulse Resp BP Pulse Ox 08/06/18 11:38 37.0 C 75 18 154/79 H 96 08/06/18 08:00 96 H 08/06/18 07:25 36.9 C 93 H 20 182/99 H 08/06/18 07:06 78 18 96 08/06/18 05:30 86 156/88 H 08/06/18 04:13 95 H 18 95 08/06/18 04:00 37.1 C 93 H 22 175/95 H 94 08/06/18 01:51 84
[2018-08-06] MEDS: MONTELUKAST SODIUM 10 MG TABLET PO SCH (20:36)
[2018-08-06] MEDS: DUTASTERIDE 0.5 MG CAPSULE PO SCH (20:36)
[2018-08-07] MEDS ORDERED: HydrALAZINE HCL 20 MG/ML VIAL IV STA (03:49)
[2018-08-07] MEDS: PIPERACILLIN/TAZOBACTAM 3.375 GM in DEXTROSE 5% 100 ML IV SCH ×2 (04:26→11:36)
[2018-08-07 07:37] LABS: Creatinine Clr Calc Pharmacy 66.7 ml/min; Est GFR (African American) 93.9
[2018-08-07] MEDS: ARTIFICIAL TEARS OP SCH (07:53)
[2018-08-07] MEDS: RASAGILINE 1 MG PO SCH (07:54)
[2018-08-07] MEDS: ENOXAPARIN INJ 40 MG/0.4 ML SYR SQ SCH (07:54)
[2018-08-07] MEDS: LISINOPRIL 5 MG TAB PO SCH (07:55)
[2018-08-07] MEDS: CHOLECALCIFEROL 1,000 UNITS TAB PO SCH (07:55)
[2018-08-07] MEDS: METOPROLOL TARTRATE 50 MG TAB PO SCH ×2 (07:55→20:40)
[2018-08-07] MEDS: FLUTICASONE/SALMETEROL 250/50 (ADVAIR) 14 PUFF/1 INHALER INH SCH ×2 (07:55→20:37)
[2018-08-07] MEDS: PANTOprazole 40 MG TAB PO SCH (07:56)
[2018-08-07] MEDS: MULTIVITAMIN TAB PO SCH (07:56)
[2018-08-07] MEDS: ASPIRIN 81 MG ECTAB PO SCH (07:56)
[2018-08-07] MEDS: LORATADINE 10 MG TAB PO SCH (07:56)
[2018-08-07] MEDS: POTASSIUM CHLORIDE 10 MEQ TABCR PO SCH (07:56)
[2018-08-07] MEDS: CARBIDOPA/LEVODOPA 25/100MG TAB PO SCH ×4 (07:56→17:08)
[2018-08-07] MEDS: ATORVASTATIN 40 MG TAB PO SCH (07:56)
[2018-08-07] MEDS: OSELTAMIVIR PHOSPHATE 75 MG CAP PO SCH ×2 (07:56→20:41)
[2018-08-07] MEDS: SODIUM CHLORIDE 0.9% 1000ML 1,000 ML IV SCH (09:14)
--- NOTE | 2018-08-07 12:17 | Family Medicine Progress Note ---
Date of Service August 07, 2018 Assessment & Plan (1) Hospital acquired PNA: 87yoM with hx of CLL, HTN, HLD, Parkinson's, asthma, glaucoma, gout, GERD, BPH presents with weakness x 1 day. Admitted for influenza A and concern of RLL HCAP as pt was in [facility] for 2 weeks referred by PCP for generalized weakness, discharged on 08/01. HCAP: -clinically improved -remains Afebrile, WBC trending down -CXR patchy R basilar densities new atelectasis vs. PNA -BCx2 NO growth to date -Received Levaquin, Vanc and Zosyn x 1 in ED -converted to PO Augmentin -Duonebs Influenza A -Continue Oseltamivir Bilateral LE edema: concern for CHF vs. venous stasis - Pt denies hx of heart failure and reports chronic - Echo 08/04: mild concentric LVH, EF 55-60%, mild Aortic valve sclerosis without significant stenosis, mild to moderate mitral regurgitation Hx of Asthma -Continue home Advair, albuterol INR prn, Loratadine and Singulair CV: HTN/HLD -Continue home metoprolol, lisinopril, aspirin and lipitor Parkinson's Disease -Continue home Sinemet and Rasagiline GERD -Continue home prevacid and ranitidine BPH -Continue home dutasteride DVT prop: Lovenox SQ daily Code: Full Dispo: Downgrade to med/surg Per PT/OT, inpatient rehab authorization in process, case management alerted PCP f/u scheduled on 08/15 (2) Influenza A: (3) Asthma: (4) Gout: (5) Glaucoma: (6) Parkinson disease: (7) HTN (hypertension): Supervising Physician Co-Signing Physician Notes Patient seen and examined with Dr. Gomes. Agree with documented history, exam, assessment and plan of care. In brief, Mr. Chiang is an 87 year old male with CLL (baseline WBC ~12), HTN, HLD, BPH, asthma and PD admitted with HCAP and influenza A. He is still coughing. Denies fevers, chills, chest pain, shortness of breath. Lungs are clear on exam, moving are well. 1. HCAP. d/c vanc (MRSA negative). Was on vanc and zosyn, but MRSA neg and now tolerating oral. Transition to oral augmentin in anticipation of discharge to SNF, monitor for fevers, increasing leukocytosis. WBC 13. 2. influenza A. Day 4 of osetlamivir. 3. bilateral LE edema. ?secondary to mild HFpEF. Echo here with preserved EF 55- 60% and mild LVH. Stable. Monitor. 4. asthma. continue home advair, albuterol nebs, claritin and singulair. 5. CLL. stable. chronic leukocytosis. baseline white count ~12. 6. HTN. Some elevated systolic pressures. Lisinopril 5mg, metoprolol 75mg BID. Other chronic issues are stable. Dispo: Medically stable for discharge. Awaiting bed for SNF discharge. Subjective Patient reports overall improvement. Shortness of breath and cough continue to improve. He denies fever, chills, abdominal pain, diarrhea . Review of Systems Constitutional: no fever, no chills, no fatigue and no weakness Respiratory: + cough; no dyspnea and no wheezing Cardiovascular: no chest pain, no palpitations and no edema Gastrointestinal: no abdominal pain, no nausea, no vomiting and no change in stools Physical Exam Physical Exam: GENERAL APPEARANCE: alert and cooperative, and appears to be in no acute distress. HEAD: normocephalic. EYES: PERRL, EOMI. vision is grossly intact. NECK: Neck supple, non-tender without lymphadenopathy CARDIAC: Normal S1 and S2. No S3, S4 or murmurs. Rhythm is regular LUNGS: Clear to auscultation and percussion without rales, rhonchi, wheezing or diminished breath sounds. ABDOMEN: Positive bowel sounds. Soft, nondistended, nontender. No guarding or rebound. No masses. LOWER EXTREMITY: no edema Results & Data Vital Signs (Past 12 Hours) Vital Signs Temp Pulse Pulse Pulse Resp BP BP 08/07/18 07:45 37.4 C 102 H 20 174/84 H 08/07/18 05:30 97 H 155/75 H 08/07/18 03:37 36.9 C 81 18 187/84 H 08/07/18 00:32 78 Pulse Ox 08/07/18 07:45 93 08/07/18 05:30 08/07/18 03:37 95 08/07/18 00:32 Resident Activity Tracking Resident Involvement: Resident Care Provided Care Provided: Adult [place]
[2018-08-07] MEDS: DUTASTERIDE 0.5 MG CAPSULE PO SCH (20:38)
[2018-08-07] MEDS: MONTELUKAST SODIUM 10 MG TABLET PO SCH (20:40)
[2018-08-07] MEDS: ALBUT/IPRATROP 3MG/0.5MG NEB 3 ML VIAL NEB PRN (23:52)
[2018-08-08] MEDS: ACETAMINOPHEN 325 MG TAB PO PRN (04:39)
[2018-08-08 07:55] LABS: Basophils # (auto) 0.01 K/uL (0-0.2); Basophils % (auto) 0.1 %; Eosinophils # (auto) 0.04 K/uL (0-0.5); Eosinophils % (auto) 0.4 %; Hematocrit (blood only) 33.5 % (42-52); Hemoglobin 11.5 g/dL (14.0-18.0); Immature Granulocytes # (auto) 0.03 K/uL (0.00-0.02); Immature Granulocytes % (auto) 0.3 %; Lymphocytes # (auto) 4.32 K/uL (1.2-3.4); Lymphocytes % (auto) 43.1 %; Mean Corpuscular Hgb Conc 34.3 g/dL (32-36); Mean Corpuscular Volume 89.3 fL (80-100); Mean Platelet Volume 8.7 fL (7.4-10.4); Monocytes # (auto) 1.06 K/uL (0.11-0.59); Monocytes % (auto) 10.6 %; Neutrophils # (auto) 4.56 K/uL (1.4-6.5); Neutrophils % (auto) 45.5 %; Platelet Count 214 K/uL (130-400); RDW Coefficient of Variation 14.7 % (11.5-14.5); RDW Standard Deviation 47.7 fL (36.4-46.3); Red Blood Count 3.75 M/uL (4.7-6.1); White Blood Count 10.02 K/uL (4.8-10.8)
[2018-08-08 08:18] LABS: BUN Creatinine Ratio 16.6 (10-20); Calcium 9.2 mg/dl (8.5-10.1); Creatinine Clr Calc Pharmacy 67.5 ml/min; Est GFR (African American) 94.4; Est GFR (Non-African American) 81.5; Potassium 3.4 mmol/L (3.5-5.1)
[2018-08-08] MEDS: FLUTICASONE/SALMETEROL 250/50 (ADVAIR) 14 PUFF/1 INHALER INH SCH ×2 (08:54→20:18)
[2018-08-08] MEDS: ATORVASTATIN 40 MG TAB PO SCH (08:54)
[2018-08-08] MEDS: ENOXAPARIN INJ 40 MG/0.4 ML SYR SQ SCH (08:54)
[2018-08-08] MEDS: CHOLECALCIFEROL 1,000 UNITS TAB PO SCH (08:54)
[2018-08-08] MEDS: PANTOprazole 40 MG TAB PO SCH (08:55)
[2018-08-08] MEDS: MULTIVITAMIN TAB PO SCH (08:55)
[2018-08-08] MEDS: LORATADINE 10 MG TAB PO SCH (08:55)
[2018-08-08] MEDS: POTASSIUM CHLORIDE 10 MEQ TABCR PO SCH (08:56)
[2018-08-08] MEDS: RASAGILINE 1 MG PO SCH (08:56)
[2018-08-08] MEDS: OSELTAMIVIR PHOSPHATE 75 MG CAP PO SCH ×2 (08:57→20:18)
[2018-08-08] MEDS: LISINOPRIL 5 MG TAB PO SCH (08:57)
[2018-08-08] MEDS: ASPIRIN 81 MG ECTAB PO SCH (08:57)
[2018-08-08] MEDS: METOPROLOL TARTRATE 50 MG TAB PO SCH ×2 (08:57→20:16)
[2018-08-08] MEDS: CARBIDOPA/LEVODOPA 25/100MG TAB PO SCH ×4 (08:59→20:16)
[2018-08-08] MEDS: ARTIFICIAL TEARS OP SCH (08:59)
[2018-08-08] MEDS: AMOXICILLIN/CLAVULANATE 875 MG TAB PO SCH ×2 (09:00→17:00)
[2018-08-08] MEDS: ALBUT/IPRATROP 3MG/0.5MG NEB 3 ML VIAL NEB PRN (09:31)
--- NOTE | 2018-08-08 14:56 | Family Medicine Progress Note ---
Date of Service August 08, 2018 Assessment & Plan (1) Hospital acquired PNA: 87yoM with hx of CLL, HTN, HLD, Parkinson's, asthma, glaucoma, gout, GERD, BPH presents with weakness x 1 day. Admitted for influenza A and concern of RLL HCAP as pt was in [facility] for 2 weeks referred by PCP for generalized weakness, discharged on 08/01. HCAP: -clinically improving overall -remains Afebrile, WBC trending down -CXR patchy R basilar densities new atelectasis vs. PNA -BCx2 NO growth to date -Received Levaquin, Vanc and Zosyn x 1 in ED -converted to PO Augmentin -Duonebs Influenza A -Continue Oseltamivir Bilateral LE edema: concern for CHF vs. venous stasis - Pt denies hx of heart failure and reports chronic - Echo 08/04: mild concentric LVH, EF 55-60%, mild Aortic valve sclerosis without significant stenosis, mild to moderate mitral regurgitation Hx of Asthma -Continue home Advair, albuterol INR prn, Loratadine and Singulair CV: HTN/HLD -Continue home metoprolol, lisinopril, aspirin and lipitor Parkinson's Disease -Continue home Sinemet and Rasagiline GERD -Continue home prevacid and ranitidine BPH -Continue home dutasteride DVT prop: Lovenox SQ daily Code: Full Dispo: Downgrade to med/surg Per PT/OT, inpatient rehab authorization in process, case management alerted PCP f/u scheduled on 08/15 (2) Influenza A: (3) Asthma: (4) Gout: (5) Glaucoma: (6) Parkinson disease: (7) HTN (hypertension): Supervising Physician Co-Signing Physician Notes Attending attestation Pt seen and examined in concert with Dr. Gomes. In agreement with the documented findings as noted in the resident documentation with any exceptions or additions as noted here. Resting in chair at bedside. Improving cough and shortness of breath comparatively, though still feeling weak overall. On examination, mild decreased breath sounds at bilateral bases. HCAP in the setting of asthma and influenza A - continue PO augmentin, Tamiflu; advair, albuterol, claritin and singulair CLL - leukocytosis improved HTN - continue metoprolol, increase lisinopril to 10mg Else see resident documentation as noted. Subjective Patient continues to report improvement. Shortness of breath and cough are improved. Patient still reports generalized weakness related to Parkinsons Review of Systems Constitutional: no fever, no chills and no fatigue Respiratory: no cough and no dyspnea Cardiovascular: no chest pain and no palpitations Gastrointestinal: no abdominal pain, no nausea, no vomiting and no change in stools Neurologic: + generalized weakness Physical Exam Physical Exam: GENERAL APPEARANCE: alert and cooperative, and appears to be in no acute distress. HEAD: normocephalic. EYES: PERRL, EOMI. vision is grossly intact. CARDIAC: Normal S1 and S2. No S3, S4 or murmurs. Rhythm is regular LUNGS: Right lower lobe wheezing ABDOMEN: Positive bowel sounds. Soft, nondistended, nontender. No guarding or rebound. No masses. LOWER EXTREMITY: no edema NEUROLOGICAL: CN II-XII intact grossly, flat affect, no tremor Results & Data Vital Signs (Past 12 Hours) Vital Signs Temp Pulse Resp BP Pulse Ox 08/08/18 13:46 94 08/08/18 11:38 36.7 C 72 16 102/56 L 95 08/08/18 09:31 76 18 92 08/08/18 07:31 36.6 C 83 16 170/84 H 91 08/08/18 04:26 37.7 C H 86 20 169/90 H 94 Resident Activity Tracking Resident Involvement: Resident Care Provided Care Provided: Adult Hospital Medicine
[2018-08-08] MEDS: MONTELUKAST SODIUM 10 MG TABLET PO SCH (20:16)
[2018-08-08] MEDS: DUTASTERIDE 0.5 MG CAPSULE PO SCH (20:17)
[2018-08-08] MEDS: BENZONATATE 100 MG CAPSULE PO PRN (20:21)
[2018-08-09] MEDS: FLUTICASONE/SALMETEROL 250/50 (ADVAIR) 14 PUFF/1 INHALER INH SCH ×2 (08:20→20:29)
[2018-08-09] MEDS: ARTIFICIAL TEARS OP SCH (08:20)
[2018-08-09] MEDS: AMOXICILLIN/CLAVULANATE 875 MG TAB PO SCH ×2 (08:21→16:47)
[2018-08-09] MEDS: ASPIRIN 81 MG ECTAB PO SCH (08:22)
[2018-08-09] MEDS: LORATADINE 10 MG TAB PO SCH (08:22)
[2018-08-09] MEDS: ATORVASTATIN 40 MG TAB PO SCH (08:22)
[2018-08-09] MEDS: POTASSIUM CHLORIDE 10 MEQ TABCR PO SCH (08:23)
[2018-08-09] MEDS: METOPROLOL TARTRATE 50 MG TAB PO SCH ×2 (08:23→20:30)
[2018-08-09] MEDS: ENOXAPARIN INJ 40 MG/0.4 ML SYR SQ SCH (08:25)
[2018-08-09] MEDS: MULTIVITAMIN TAB PO SCH (08:26)
[2018-08-09] MEDS: RASAGILINE 1 MG PO SCH (08:28)
[2018-08-09] MEDS: PANTOprazole 40 MG TAB PO SCH (08:28)
[2018-08-09] MEDS: CHOLECALCIFEROL 1,000 UNITS TAB PO SCH (08:29)
[2018-08-09] MEDS: CARBIDOPA/LEVODOPA 25/100MG TAB PO SCH ×4 (08:29→20:32)
[2018-08-09] MEDS ORDERED: LISINOPRIL 10 MG TAB PO SCH (09:00)
--- NOTE | 2018-08-09 12:42 | Family Medicine Progress Note ---
Date of Service August 09, 2018 Assessment & Plan (1) Hospital acquired PNA: 87yoM with hx of CLL, HTN, HLD, Parkinson's, asthma, glaucoma, gout, GERD, BPH presents with weakness x 1 day, referred by PCP. Admitted for influenza A and concern of RLL HCAP as pt was in [facility] for 2 weeks, discharged on 08/01. HCAP Pt appears to be doing well, afebrile, WBC trending down. CXR patchy R basilar densities new atelectasis vs. PNA BCx2 NO growth to date Received Levaquin, Vanc and Zosyn x 1 in ED converted to PO Augmentin on 08/08/18, target date to end therapy will be 08/15/18. Albuterol Q4H PRN. c/w Fluticasone / Salmeterol BID Influenza A completed 5 days of Oseltamivir Bilateral LE edema, likely venous stasis Echo 08/04: mild concentric LVH, EF 55-60%, mild Aortic valve sclerosis without significant stenosis, mild to moderate mitral regurgitation Hx of Asthma Continue home Advair BID, albuterol prn, Loratadine and Singulair HTN/HLD Continue home metoprolol, lisinopril, aspirin and lipitor Parkinson's Disease Continue home Sinemet and Rasagiline GERD Continue home prevacid and ranitidine BPH Continue home dutasteride DVT prop: Lovenox 40meq SQ daily Dispo: Med Surg, Per PT/OT, inpatient rehab authorization in process ([facility]), case management aware, currently pinging weekend case operator to see if auth will come this weekend. PCP f/u scheduled on 08/15 Code: Full (2) Influenza A: (3) Asthma: (4) Gout: (5) Glaucoma: (6) Parkinson disease: (7) HTN (hypertension): Supervising Physician Co-Signing Physician Notes Attending attestation Pt seen and examined in concert with Dr. Eid. In agreement with the documented findings as noted in the resident documentation with any exceptions or additions as noted here. Resting comfortably in chair at bedside. Reports improved shortness of breath and cough, improved energy and conversation. On examination, decreased breath sounds bilateral bases with minimal rhonchi appreciated. HCAP in the setting of asthma and influenza A - continue PO augmentin, Tamiflu; advair, albuterol, claritin and singulair HTN - continue metoprolol, lisinopril 10mg. Patient reports home medication dosing is lisinopril 5mg BID, so further increase may be warranted following discharge. Else see resident documentation as noted. Subjective Pt states that his shortness of breath and cough are improved from the previous day. No acute overnight events. Pt tolerated breakfast well and was ambulating on his own. ROS: No chest pain, no SOB, no dyspnea on exertion, no palpitations, no fevers, no chills, no nausea, no vomiting, no diarrhea, no dysuria, no rash. Physical Exam Constitutional: WD/WN, vitals as above Eyes: PERRL, conjunctivae normal, anicteric sclerae Respiratory: normal respiratory effort, lungs clear to auscultation Cardiovascular: RRR, no murmur, no edema Gastrointestinal (Abdomen): normal bowel sounds, soft, nontender, no hepato splenomegaly Musculoskeletal: no cyanosis or clubbing, extremities motor strength 5/5 Skin: no rashes, warm and dry Neurologic: patellar DTR's 2+ bilat, sensation intact Psychiatric: A+Ox3, euthymic affect Results & Data Vital Signs (Past 12 Hours) Vital Signs Temp Pulse Resp BP Pulse Ox 08/09/18 07:19 36.8 C 82 18 166/80 H 92 Resident Activity Tracking Resident Involvement: Resident Care Provided Care Provided: Adult Hospital Medicine
[2018-08-09] MEDS: ACETAMINOPHEN 325 MG TAB PO PRN (19:34)
[2018-08-09] MEDS: MONTELUKAST SODIUM 10 MG TABLET PO SCH (20:31)
[2018-08-09] MEDS: LISINOPRIL 10 MG TAB PO SCH (20:32)
[2018-08-09] MEDS: DUTASTERIDE 0.5 MG CAPSULE PO SCH (20:34)
[2018-08-10] MEDS: ALBUT/IPRATROP 3MG/0.5MG NEB 3 ML VIAL NEB PRN ×2 (03:09→12:59)
[2018-08-10] MEDS: AMOXICILLIN/CLAVULANATE 875 MG TAB PO SCH ×2 (07:54→16:38)
[2018-08-10] MEDS: ALBUTEROL HFA 8 GM INHALER INH PRN ×2 (07:56→19:05)
[2018-08-10] MEDS: FLUTICASONE/SALMETEROL 250/50 (ADVAIR) 14 PUFF/1 INHALER INH SCH ×2 (08:07→20:19)
[2018-08-10] MEDS: ARTIFICIAL TEARS OP SCH (08:08)
[2018-08-10] MEDS: LORATADINE 10 MG TAB PO SCH (08:08)
[2018-08-10] MEDS: ASPIRIN 81 MG ECTAB PO SCH (08:09)
[2018-08-10] MEDS: METOPROLOL TARTRATE 50 MG TAB PO SCH ×2 (08:12→20:20)
[2018-08-10] MEDS: POTASSIUM CHLORIDE 10 MEQ TABCR PO SCH (08:12)
[2018-08-10] MEDS: ATORVASTATIN 40 MG TAB PO SCH (08:12)
[2018-08-10] MEDS: ENOXAPARIN INJ 40 MG/0.4 ML SYR SQ SCH (08:13)
[2018-08-10] MEDS: RASAGILINE 1 MG PO SCH (08:14)
[2018-08-10] MEDS: MULTIVITAMIN TAB PO SCH (08:14)
[2018-08-10] MEDS: PANTOprazole 40 MG TAB PO SCH (08:15)
[2018-08-10] MEDS: CARBIDOPA/LEVODOPA 25/100MG TAB PO SCH ×4 (08:15→20:19)
[2018-08-10] MEDS: CHOLECALCIFEROL 1,000 UNITS TAB PO SCH (08:16)
[2018-08-10] MEDS: LISINOPRIL 10 MG TAB PO SCH ×2 (08:17→20:20)
--- NOTE | 2018-08-10 13:31 | Family Medicine Progress Note ---
Date of Service August 10, 2018 Assessment & Plan (1) Hospital acquired PNA: 87yoM with hx of CLL, HTN, HLD, Parkinson's, asthma, glaucoma, gout, GERD, BPH presents with weakness x 1 day, referred by PCP. Admitted for influenza A and concern of RLL HCAP as pt was in [facility] for 2 weeks, discharged on 08/01. HCAP Pt appears to be doing well, afebrile, WBC trending down. CXR patchy R basilar densities new atelectasis vs. PNA BCx2 No growth to date Received Levaquin, Vanc and Zosyn x 1 in ED converted to PO Augmentin on 08/08/18, target date to end therapy will be 08/15/18. Albuterol Q4H PRN. c/w Fluticasone / Salmeterol BID Influenza A completed 5 days of Oseltamivir Bilateral LE edema, likely venous stasis Echo 08/04: mild concentric LVH, EF 55-60%, mild Aortic valve sclerosis without significant stenosis, mild to moderate mitral regurgitation Offered compression stockings - pt declined. Encouraged mobility. Hx of Asthma Continue home Advair BID, albuterol prn, Loratadine and Singulair HTN/HLD Continue home metoprolol, lisinopril, lipitor and ASA ASA appears to be for primary prevention - if this is the case, recommended making a note on discharge summary for outpatient PCP to consider holding. Parkinson's Disease Continue home Sinemet and Rasagiline GERD Continue home prevacid and ranitidine BPH Continue home dutasteride DVT prop: Lovenox 40meq SQ daily Dispo: Med Surg, Did a peer to peer with insurance, pt qualifies for SUBACUTE rehab and not acute rehab, will forward on to dion Rosario catalytic case operator. PCP f/u scheduled on 08/15 Code: Full (2) Influenza A: (3) Asthma: (4) Gout: (5) Glaucoma: (6) Parkinson disease: (7) HTN (hypertension): Supervising Physician Co-Signing Physician Notes Attending attestation Pt seen and examined in concert with Dr. Eid. In agreement with the documented findings as noted in the resident documentation with any exceptions or additions as noted here. 87 y/o male h/o CLL, HTN, HLD, BPH, asthma admitted with HCAP and influenza A. Resting comfortably in chair at bedside, reading on his tablet. Cough and SOB continue to improve, though more with neb treatments than without. On examination, decreased breath sounds throughout with scattered wheezing. HCAP in the setting of asthma and influenza A - neb treatment and monitor assessment for respiratory comfort. Continue PO augmentin, Tamiflu course completed; advair, albuterol, claritin and singulair HTN - continue metoprolol, lisinopril 10mg. BP vacillates, so have been holding on further escalation. Else see resident documentation as noted. Subjective No complaints. No acute overnight events. Pt tolerated breakfast well and was ambulating on his own. Still coughing. ROS: No chest pain, no SOB, no dyspnea on exertion, no palpitations, no fevers, no chills, no nausea, no vomiting, no diarrhea, no dysuria, no rash. Physical Exam Constitutional: WD/WN, vitals as above Eyes: PERRL, conjunctivae normal, anicteric sclerae Respiratory: normal respiratory effort, lungs clear to auscultation Cardiovascular: RRR, no murmur, no edema Extremities: + edema (2+ edema bilaterally) Gastrointestinal (Abdomen): normal bowel sounds, soft, nontender, no hepatosplenomegaly Musculoskeletal: no cyanosis or clubbing, extremities motor strength 5/5 Skin: no rashes, warm and dry Neurologic: patellar DTR's 2+ bilat, sensation intact Psychiatric: A+Ox3, euthymic affect Results & Data Vital Signs (Past 12 Hours) Vital Signs Temp Pulse Pulse Resp BP Pulse Ox 08/10/18 13:01 84 18 96 08/10/18 11:20 36.8 C 85 18 136/77 93 08/10/18 07:15 37.0 C 88 18 172/64 H 93 08/10/18 03:12 86 20 94 Resident Activity Tracking Resident Involvement: Resident Care Provided Care Provided: Adult Hospital Medicine
--- NOTE | 2018-08-10 15:41 | XRay Report ---
XR chest 1V portable HISTORY: 87 years-old Male eval progression /regression of pneumonia follow up study in a patient wi th pneumonia COMPARISON: Chest radiographs 08/03/2018 TECHNIQUE: Portable AP view of the chest FINDINGS: Cardiac silhouette is mildly enlarged, unchanged. Calcification the thoracic aortic arch. No pneumoth orax or overt pulmonary edema. Suggested trace right pleural effusion. Progressive alveolar opacities about the right midlung and right lung base. Additional subsegmental left basilar opacities are note d. Degenerative changes of the shoulders and spine. IMPRESSION: 1. Progressive alveolar opacities of the right midlung and right lung base suggest worsening pneumoni a. 2. Mild subsegmental left basilar opacities suggest atelectasis or pneumonia. 3. Cardiomegaly. The above report was generated using voice recognition software. It may contain grammatical, syntax o r spelling errors. Electronically signed by: Jung Santacruz M.D. 08/10/2018 3:40 PM
[2018-08-10] MEDS: MONTELUKAST SODIUM 10 MG TABLET PO SCH (20:20)
[2018-08-10] MEDS: DUTASTERIDE 0.5 MG CAPSULE PO SCH (20:20)
[2018-08-11] MEDS: PANTOprazole 40 MG TAB PO SCH (08:19)
[2018-08-11] MEDS: ATORVASTATIN 40 MG TAB PO SCH (08:19)
[2018-08-11] MEDS: LORATADINE 10 MG TAB PO SCH (08:19)
[2018-08-11] MEDS: LISINOPRIL 10 MG TAB PO SCH ×2 (08:20→20:29)
[2018-08-11] MEDS: MULTIVITAMIN TAB PO SCH (08:20)
[2018-08-11] MEDS: CARBIDOPA/LEVODOPA 25/100MG TAB PO SCH ×4 (08:20→20:29)
[2018-08-11] MEDS: CHOLECALCIFEROL 1,000 UNITS TAB PO SCH (08:21)
[2018-08-11] MEDS: ASPIRIN 81 MG ECTAB PO SCH (08:21)
[2018-08-11] MEDS: RASAGILINE 1 MG PO SCH (08:22)
[2018-08-11] MEDS: METOPROLOL TARTRATE 50 MG TAB PO SCH ×2 (08:23→20:27)
[2018-08-11] MEDS: FLUTICASONE/SALMETEROL 250/50 (ADVAIR) 14 PUFF/1 INHALER INH SCH ×2 (08:24→20:26)
[2018-08-11] MEDS: AMOXICILLIN/CLAVULANATE 875 MG TAB PO SCH ×2 (08:24→18:18)
[2018-08-11] MEDS: POTASSIUM CHLORIDE 10 MEQ TABCR PO SCH (08:25)
[2018-08-11] MEDS: ENOXAPARIN INJ 40 MG/0.4 ML SYR SQ SCH (08:25)
[2018-08-11] MEDS: ALBUTEROL HFA 8 GM INHALER INH PRN (08:27)
--- NOTE | 2018-08-11 10:26 | Family Medicine Progress Note ---
Date of Service August 11, 2018 Assessment & Plan (1) Hospital acquired PNA: 87-year-old male was admitted on 04 August 2018 for weakness and found to have influenza A as well as concern for RLL hospital acquired pneumonia. Of note, patient was a resident of [facility] for two weeks and discharged on 19Apr. Hospital acquired pneumonia: As seen on CXR. Started on Levaquin, vancomycin, and Zosyn. Nasal MRSA negative. 21Apr BCx no growth (final). Continued on Zosyn then switched to Augmentin on 26Apr (end around 03May). Duonebs prn. Question of progressive worsening on repeat 28Apr pCXR. No appreciable breath sounds in right base on exam. - Ordered CT of the chest with contrast to evaluate for both aspiration and potential esophageal mass. Influenza A: On Apr testing. Completed five day course of oseltamivir. Esophageal dysfunction: As noted on 29Apr swallow evaluation (see full note). See their dietary restrictions and recommendations. - Consulted GI for their input. Bilateral lower extremity edema: CHF vs venous stasis. 22Apr TTE noted EF 55- 60%, mild LVH, mild-mod MR, & elevated RV systolic pressure. Patient declined compression stockings. Previous medical history: - Asthma: Continue home Advair, albuterol as needed, loratadine, and Singulair. - Hypertension/hyperlipidemia: Continue home metoprolol, lisinopril, aspirin, and Lipitor. --- Consider holding ASA for primary prevention purposes once outpatient. --- Lisinopril was increased to 10 mg daily. - Parkinsons disease: Continue home Sinemet and rasigiline. - GERD: Continue home Prevacid (protonix here) and ranitidine. - BPH: Continue home dutasteride. - Gout, glaucoma. - Chronic lymphocytic leukemia: Baseline WBC around 12. Code status: Full code. Diet: Heart healthy. See swallow evaluation recommendations. DVT prophy: Lovenox. PT/OT: Recommended rehab. Disbo: Admitted to [facility] with telemetry. Lives in [place] with . --- PCP f/u scheduled for 03May. --- Was denied acute rehab. Working towards SNF. (2) Influenza A: (3) Bilateral lower extremity edema: (4) Asthma: (5) HTN (hypertension): (6) Hyperlipidemia: (7) Parkinson disease: (8) GERD (gastroesophageal reflux disease): (9) BPH (benign prostatic hyperplasia): (10) Gout: (11) Glaucoma: (12) Chronic lymphocytic leukemia: Supervising Physician Co-Signing Physician Notes I personally examined the patient and verified all edwards points of history and exam, discussed case, and agree with decision making with Dr Wilson. Feeling better. Just very weak. Speech input noted. Video fluoroscopy noted. Vitals noted, in general he is awake and alert and in no distress. HEENT normocephalic atraumatic mucous membrane is moist. Lungs show markedly diminished base right breath sounds. No rales rhonchi wheezing good effort Pneumoniaappears to be improving. Certainly concerning about aspiration. Also concerning about his near absent breath sounds basal rate, given that his prior chest x-rays would not show anything so dense us to corroborate this. Further imaging of his lungs. Video fluoroscopy noted, initially speech thought it appeared consistent with upper esophageal pathology, but the official read from radiology seems to suggest more of a Parkinson's dysphasia type pathology. Will await appearance of esophagus on imaging obtained for the lung. Otherwise as above. Subjective Found patient sitting in bedside chair. Says that overall he feels "so so", noting that his right ankle feels sore (says is an old injury years ago). Says cough is overall improved and that walking "feels good". No other particular patient complaints. When asked about coughing around times of meals, patient says he didn't notice it much but his nurse says he coughs a lot with meals. Physical Exam Physical Exam: General Appearance: Awake, alert & oriented, comfortable in general, NAD. CV: +S1S2 RRR, no murmur. Pulm: Minimal to no breath sounds in right base. Otherwise poor respiratory effort but clearer throughout. Rare cough in room. Abdomen: +BS, soft, non-tender, non-distended. Extremities: Trace right lower extremity edema. No noted left lower extremity edema. Moving all extremities naturally and easily. Optifoam to left proximal forearm (prior abrasion). Neuro: No gross neuro deficits. Results & Data Vital Signs (Past 12 Hours) Vital Signs Temp Pulse Resp BP Pulse Ox 08/11/18 08:01 37.1 C 96 H 18 174/92 H 91 04/28/19 22:51 36.7 C 79 20 139/75 96 Laboratory Results 08/11/18 08/11/18 Range/Units 11:32 11:32 WBC 9.85 (4.8-10.8) K/uL RBC 4.06 L (4.7-6.1) M/uL Hgb 12.2 L (14.0-18.0) g/dL Hct 36.2 L (42-52) % MCV 89.2 (80-100) fL MCH 30.0 (25-34) pg MCHC 33.7 (32-36) g/dL RDW Std Deviation 47.5 H (36.4-46.3) fL RDW Coeff of Marco 14.5 (11.5-14.5) % Plt Count 252 (130-400) K/uL MPV 8.8 (7.4-10.4) fL Immature Gran % (Auto) 0.2 % Neut % (Auto) 55.9 % Lymph % (Auto) 34.7 % Stone % (Auto) 8.3 % Eos % (Auto) 0.8 % Baso % (Auto) 0.1 % Immature Gran # (Auto) 0.02 (0.00-0.02) K/uL Neut # (Auto) 5.50 (1.4-6.5) K/uL Lymph # (Auto) 3.42 H (1.2-3.4) K/uL Stone # (Auto) 0.82 H (0.11-0.59) K/uL Eos # (Auto) 0.08 (0-0.5) K/uL Baso # (Auto) 0.01 (0-0.2) K/uL Sodium 139 (136-145) mmol/L Potassium 3.6 (3.5-5.1) mmol/L Chloride 105 (98-107) mmol/L Carbon Dioxide 25 (21-32) mmol/L Anion Gap 9.0 (3-11) BUN 15 (7-18) mg/dl Creatinine 0.81 (0.6-1.4) mg/dl Est Cr Clr Drug Dosing 66.7 ml/min Est GFR ( Amer) 93.9 Est GFR (Non-Af Amer) 81.0 BUN/Creatinine Ratio 18.8 (10-20) Glucose 114 H (70-99) mg/dl Calcium 9.9 (8.5-10.1) mg/dl Medications Administered Current Inpatient Medications Acetaminophen (Tylenol) 650 mg PO Q4H PRN PRN Reason: Pain or Fever Stop: 09/03/18 02:50 Last Admin: 08/09/18 19:34 Dose: 650 mg Documented by: Al Hydrox/Mg Hydrox/Simethicone (Maalox) 15 ml PO Q4H PRN PRN Reason: Dyspepsia Stop: 09/03/18 02:50 Albuterol (Ventolin Hfa) 2 puffs INH Q4H PRN PRN Reason: Wheezing Last Admin: 08/11/18 08:27 Dose: 2 puffs Documented by: Albuterol (Duoneb) 3 ml NEB QIDR PRN PRN Reason: Shortness Of Breath Or Wheezing Stop: 09/03/18 07:59 Last Admin: 08/10/18 12:59 Dose: 3 ml Documented by: Amoxicillin/Clavulanate Potassium (Augmentin 875mg) 1 tab PO BIDM [facility] Stop: 08/15/18 07:59 Last Admin: 08/11/18 08:24 Dose: 1 tab Documented by: Artificial Tears (Artificial Tears) 1 drops OP DAILY [facility] Stop: 09/03/18 08:59 Last Admin: 08/10/18 08:08 Dose: 1 drops Documented by: Aspirin (Ecotrin Ectab) 81 mg PO DAILY [facility] Stop: 09/03/18 08:59 Last Admin: 08/11/18 08:21 Dose: 81 mg Documented by: Atorvastatin Calcium (Lipitor) 40 mg PO DAILY [facility] Stop: 09/03/18 08:59 Last Admin: 08/11/18 08:19 Dose: 40 mg Documented by: Benzonatate (Tessalon Perle) 100 mg PO TID PRN PRN Reason: Cough Stop: 09/07/18 08:59 Last Admin: 08/08/18 20:21 Dose: 100 mg Documented by: Carbidopa/Levodopa (Sinemet 25/100 Mg) 2 tab PO 0900,1300,1700,2000 [facility] Stop: 09/03/18 08:59 Last Admin: 08/11/18 08:20 Dose: 2 tab Documented by: Dutasteride (Dutasteride) 1 ea PO HS [facility] Stop: 09/04/18 20:59 Last Admin: 08/10/18 20:20 Dose: 1 ea Documented by: Enoxaparin Sodium (Lovenox) 40 mg SQ QAM [facility] Stop: 09/03/18 08:59 Last Admin: 08/11/18 08:25 Dose: 40 mg Documented by: Lisinopril (Zestril) 10 mg PO BID [facility] Stop: 09/08/18 20:59 Last Admin: 08/11/18 08:20 Dose: 10 mg Documented by: Loratadine (Claritin) 10 mg PO DAILY [facility] Stop: 09/03/18 08:59 Last Admin: 08/11/18 08:19 Dose: 10 mg Documented by: Menthol (Nice) 1 sree BUCCAL PRN PRN PRN Reason: Cough Stop: 09/05/18 00:29 Metoprolol Tartrate (Lopressor) 75 mg PO BID [facility] Stop: 09/03/18 02:50 Last Admin: 08/11/18 08:23 Dose: 75 mg Documented by: Montelukast Sodium (Singulair) 10 mg PO PM [facility] Stop: 09/03/18 20:59 Last Admin: 08/10/18 20:20 Dose: 10 mg Documented by: Multivitamins (Multivitamin Tab) 1 tab PO DAILY [facility] Stop: 09/03/18 08:59 Last Admin: 08/11/18 08:20 Dose: 1 tab Documented by: Rasigiline 1mg Tablet~Non-Formulary Patient's Own Med 1 ea PO DAILY [facility] Stop: 09/05/18 08:59 Last Admin: 08/11/18 08:22 Dose: 1 mg Documented by: Pantoprazole Sodium (Protonix) 40 mg PO DAILY [facility] Stop: 09/03/18 08:59 Last Admin: 08/11/18 08:19 Dose: 40 mg Documented by: Polyethylene Glycol (Miralax Powder Packet) 17 gm PO DAILY PRN PRN Reason: Constipation Stop: 09/03/18 02:50 Potassium Chloride (Klor-Con M10) 10 meq PO DAILY [facility] Stop: 09/03/18 08:59 Last Admin: 08/11/18 08:25 Dose: 10 meq Documented by: Ranitidine HCl (Zantac) 150 mg PO BID [facility] Stop: 09/03/18 08:59 Last Admin: 08/11/18 08:21 Dose: 150 mg Documented by: Fluticasone/Salmeterol (Advair Diskus 250/50) 1 puffs INH BID [facility] Stop: 09/03/18 08:59 Last Admin: 08/11/18 08:24 Dose: 1 puffs Documented by: Vitamin D (Vitamin D3) 2,000 units PO DAILY [facility] Stop: 09/03/18 08:59 Last Admin: 08/11/18 08:21 Dose: 2,000 units Documented by: Resident Activity Tracking Resident Involvement: Resident Care Provided Care Provided: Adult Hospital Medicine
[2018-08-11 11:43] LABS: Basophils # (auto) 0.01 K/uL (0-0.2); Basophils % (auto) 0.1 %; Eosinophils # (auto) 0.08 K/uL (0-0.5); Eosinophils % (auto) 0.8 %; Hematocrit (blood only) 36.2 % (42-52); Hemoglobin 12.2 g/dL (14.0-18.0); Immature Granulocytes # (auto) 0.02 K/uL (0.00-0.02); Immature Granulocytes % (auto) 0.2 %; Lymphocytes # (auto) 3.42 K/uL (1.2-3.4); Lymphocytes % (auto) 34.7 %; Mean Corpuscular Hgb Conc 33.7 g/dL (32-36); Mean Corpuscular Volume 89.2 fL (80-100); Mean Platelet Volume 8.8 fL (7.4-10.4); Monocytes # (auto) 0.82 K/uL (0.11-0.59); Monocytes % (auto) 8.3 %; Neutrophils % (auto) 55.9 %; Platelet Count 252 K/uL (130-400); RDW Coefficient of Variation 14.5 % (11.5-14.5); RDW Standard Deviation 47.5 fL (36.4-46.3); Red Blood Count 4.06 M/uL (4.7-6.1); White Blood Count 9.85 K/uL (4.8-10.8)
[2018-08-11 12:09] LABS: BUN Creatinine Ratio 18.8 (10-20); Calcium 9.9 mg/dl (8.5-10.1); Creatinine Clr Calc Pharmacy 66.7 ml/min; Est GFR (African American) 93.9; Potassium 3.6 mmol/L (3.5-5.1)
--- NOTE | 2018-08-11 13:29 | Fluoroscopy Report ---
FL video swallow CLINICAL HISTORY: 87 years-old Male with r/o apsiration; PD. Acute dysphasia with concern for aspira tion TECHNIQUE: Video fluoroscopic evaluation of swallowing was performed in the AP and lateral projection s by the speech pathology staff. The patient is fed nectar-thick and thin liquid barium, a barium coa kye wafer, and barium pudding. FLUOROSCOPY TIME: 2.2 minutes.. COMPARISON STUDY: None. FINDINGS: Silent aspiration with thin liquid barium. Moderate degree of tertiary contractions noted a bout the esophagus compatible with esophageal dysmotility. Decreased oropharyngeal transit with solid s. Retention of food bolus noted within the vallecula with pudding consistency. Calcification of the thoracic aorta. Degenerative changes of the spine. IMPRESSION: 1. Silent aspiration as above. 2. Please see the speech pathologist report for detailed findings and recommendations. Electronically signed by: Jung Santacruz M.D. 08/11/2018 1:28 PM
[2018-08-11] MEDS: ARTIFICIAL TEARS OP SCH (13:45)
[2018-08-11] MEDS ORDERED: IOVERSOL 100ml IV PRN (18:51)
--- NOTE | 2018-08-11 19:48 | CT Scan Report ---
CHEST CT WITH CONTRAST CT DOSE: 388.85 mGy.cm HISTORY: Acute dysphasia with aspiration eval for aspiration possible esophageal mass TECHNIQUE: Multiaxial CT images of the chest were performed following the intravenous administration of contrast. A dose lowering technique was utilized adhering to the principles of ALARA. COMPARISON: Swallow study as above, CT abdomen and pelvis 03/22/2016 FINDINGS: Homogeneous thyroid. There is no adenopathy by CT size criteria. Mildly prominent lymph nodes of the right hilum are seen measuring up to 8 mm. Heart is upper limits of normal in size without pericardia l effusion. Coronary arterial calcifications are noted. No thoracic aortic aneurysm or dissection. Th ere is patency of the imaged great vessels. The opacified pulmonary arterial tree is unremarkable. Small bilateral pleural effusions, right greater than left. There is no pneumothorax. There are patch y multifocal alveolar opacities noted throughout all lobes bilaterally, right greater than left and m ost pronounced within the right middle lobe. Bilateral bronchial wall thickening is noted with associ ated air bronchograms. Secretions are noted about the tracheobronchial tree. There is mild wall thickening noted about the mid and distal esophagus. Indeterminate 11 mm soft tiss ue attenuating lesion of the left adrenal gland, likely reflecting an adenoma and appears similar to comparison study. No esophageal mass identified. Soft tissues are unremarkable. Degenerative changes of the shoulders and spine. IMPRESSION: 1. Multifocal patchy bilateral alveolar opacities within all lobes bilaterally suggestive multifocal pneumonia. Follow-up imaging to document resolution is recommended. 2. Bilateral bronchial wall thickening suggests bronchitis. Associated tracheobronchial secretions ar e also noted. 3. Small bilateral pleural effusions, right greater than left with mild subsegmental bibasilar atelec tasis. 4. Mild wall thickening about the distal esophagus. Electronically signed by: Jung Santacruz M.D. 08/11/2018 7:47 PM
[2018-08-11] MEDS: MONTELUKAST SODIUM 10 MG TABLET PO SCH (20:29)
[2018-08-11] MEDS: DUTASTERIDE 0.5 MG CAPSULE PO SCH (20:32)
[2018-08-12] MEDS: FLUTICASONE/SALMETEROL 250/50 (ADVAIR) 14 PUFF/1 INHALER INH SCH ×2 (08:09→20:06)
[2018-08-12] MEDS: ALBUTEROL HFA 8 GM INHALER INH PRN (08:10)
[2018-08-12] MEDS: CHOLECALCIFEROL 1,000 UNITS TAB PO SCH (08:10)
[2018-08-12] MEDS: ATORVASTATIN 40 MG TAB PO SCH (08:10)
[2018-08-12] MEDS: MULTIVITAMIN TAB PO SCH (08:11)
[2018-08-12] MEDS: METOPROLOL TARTRATE 50 MG TAB PO SCH ×2 (08:11→20:08)
[2018-08-12] MEDS: LORATADINE 10 MG TAB PO SCH (08:11)
[2018-08-12] MEDS: LISINOPRIL 10 MG TAB PO SCH ×2 (08:11→20:12)
[2018-08-12] MEDS: PANTOprazole 40 MG TAB PO SCH (08:11)
[2018-08-12] MEDS: CARBIDOPA/LEVODOPA 25/100MG TAB PO SCH ×4 (08:12→20:10)
[2018-08-12] MEDS: ENOXAPARIN INJ 40 MG/0.4 ML SYR SQ SCH (08:13)
[2018-08-12] MEDS: RASAGILINE 1 MG PO SCH (08:13)
[2018-08-12] MEDS: ARTIFICIAL TEARS OP SCH (08:14)
[2018-08-12] MEDS: AMOXICILLIN/CLAVULANATE 875 MG TAB PO SCH ×2 (08:14→17:18)
[2018-08-12] MEDS: ASPIRIN 81 MG ECTAB PO SCH (08:18)
[2018-08-12] MEDS: POTASSIUM CHLORIDE 10 MEQ TABCR PO SCH (08:18)
[2018-08-12] MEDS: ALBUT/IPRATROP 3MG/0.5MG NEB 3 ML VIAL NEB PRN ×2 (08:33→19:51)
[2018-08-12] MEDS ORDERED: AZITHROMYCIN 250 MG TAB PO ONE (09:55)
[2018-08-12] MEDS: AMLODIPINE BESYLATE 5 MG TAB PO SCH (11:15)
--- NOTE | 2018-08-12 11:21 | Family Medicine Progress Note ---
Date of Service August 12, 2018 Assessment & Plan (1) Hospital acquired PNA: 87-year-old male was admitted on 04 August 2018 for weakness and found to have influenza A as well as concern for RLL hospital acquired pneumonia. Of note, patient was a resident of [facility] for two weeks and discharged on Apr. Hospital acquired pneumonia: As seen on CXR. Started on Levaquin, vancomycin, and Zosyn. Nasal MRSA negative. 21Apr BCx no growth (final). Continued on Zosyn then switched to Augmentin on 26Apr (end around 03May). Duonebs prn. 29Apr CT chest suggestive of multifocal pneumonia and small bilateral pleural effusions. - Added azithromycin coverage on Apr. Influenza A: On 21Apr testing. Completed five day course of oseltamivir. Esophageal dysfunction: As noted on 29Apr swallow evaluation (see full note). See their dietary restrictions and recommendations. 29Apr video swallow notes barium contrast appeared held up around the proximal esophagus as well as evidence of silent aspiration. May be Parkinson-related. 29Apr CT chest mentions mild wall thickening along the distal esophagus without report of proximal esophageal findings. - Added low dose amlodipine in hopes it may lead to some esophageal relaxation effect. Bilateral lower extremity edema: CHF vs venous stasis. 22Apr TTE noted EF 55- 60%, mild LVH, mild-mod MR, & elevated RV systolic pressure. Patient declined compression stockings. Previous medical history: - Asthma: Continue home Advair, albuterol as needed, loratadine, and Singulair. - Hypertension/hyperlipidemia: Continue home metoprolol, lisinopril, aspirin, and Lipitor. --- Consider holding ASA for primary prevention purposes once outpatient. --- Lisinopril was increased to 10 mg daily. - Parkinsons disease: Continue home Sinemet and rasigiline. - GERD: Continue home Prevacid (protonix here) and ranitidine. - BPH: Continue home dutasteride. - Gout, glaucoma. - Chronic lymphocytic leukemia: Baseline WBC around 12. Code status: Full code. Diet: Heart healthy. See swallow evaluation recommendations. DVT prophy: Lovenox. PT/OT: Recommended rehab. Disbo: Admitted to [facility] with telemetry. Lives in [place] with . --- PCP f/u scheduled for 03May. --- Was denied acute rehab. says they are working towards insurance appeal. Working on SNF in interim as well. (2) Influenza A: (3) Bilateral lower extremity edema: (4) Asthma: (5) HTN (hypertension): (6) Hyperlipidemia: (7) Parkinson disease: (8) GERD (gastroesophageal reflux disease): (9) BPH (benign prostatic hyperplasia): (10) Gout: (11) Glaucoma: (12) Chronic lymphocytic leukemia: Supervising Physician Co-Signing Physician Notes I personally examined the patient and verified all edwards points of history and exam, discussed case, and agree with decision making with Dr Wilson. Breathing okay, no acute complaints. Still quite weak. He is appealing the rehab denial. Extensive discussion with patient and on concerns about deconditioning while in the hospital, as well as ongoing need for speech and swallow therapy, as well as risks of going home given that they were giving consideration of this as well. Vitals noted, in general he is awake and alert and in no distress. HEENT normocephalic atraumatic mucous membrane is moist. Breathing unlabored no accessory muscle use good effort. Skin shows no rashes no pallor or icterus. He is somewhat slow to respond with quiet voice. Pneumoniaappears to be improving. CT scan consistent with a patchy diffuse infiltrate much more consistent with post influenza bacterial overgrowth than an aspiration event. This is improving, continue antibiotics. Dysphasiaappears to be Parkinson's related. Will give trial 2 additional amlodipine to help with esophageal dysmotility, he definitely needs ongoing speech therapy eval and treat. Fortunately with the pattern of pneumonia, appears more consistent with a post influenza bacterial overgrowth and an aspiration event, but he is certainly at quite high risk for aspiration in the future. Continue as above. Disposition he is stable to go to acute or subacute rehab. Acute rehab would be preferable but has been denied, he is appealing this. Otherwise we can look towards subacute rehab. In discussion with the patient and about going home and doing therapy as an outpatient, I discussed that they would have to be comfortable with him being able to get around with only what they are able to do for support, and discussed risks of falling and deconditioning at home as well. Right now it seems like going home would be fairly risky, given his overall weakness and frailty. Otherwise as above. Subjective Again found patient sitting in his bedside chair, eating breakfast. Continues to say that he feels "so-so", about the same as yesterday. When asked specifically, however, he does say he feels a little more short of breath today and asked for a breathing treatment. He denied any focal pains or other acute concerns. On re-rounding, updated his at bedside and discussed status of referral for inpatient rehabilitation vs SNF. Physical Exam Physical Exam: General Appearance: Awake, alert & oriented, comfortable in general, NAD. CV: +S1S2 RRR, no murmur. Pulm: Minimal breath sounds in right base. Otherwise still poor respiratory effort but clearer throughout. Abdomen: +BS, soft, non-tender, non-distended. Extremities: Trace right lower extremity edema. No noted left lower extremity edema. Moving all extremities naturally and easily. Optifoam to left proximal forearm (prior abrasion). Neuro: No gross neuro deficits. Results & Data Vital Signs (Past 12 Hours) Vital Signs Temp Pulse Pulse Resp BP Pulse Ox 08/12/18 08:34 93 H 18 95 08/12/18 07:15 36.3 C L 66 18 168/80 H 92 08/11/18 23:31 36.5 C 75 18 157/81 H 96 Resident Activity Tracking Resident Involvement: Resident Care Provided Care Provided: Adult Hospital Medicine
[2018-08-12] MEDS: MONTELUKAST SODIUM 10 MG TABLET PO SCH (20:08)
[2018-08-12] MEDS: DUTASTERIDE 0.5 MG CAPSULE PO SCH (20:10)
[2018-08-13] MEDS: CHOLECALCIFEROL 1,000 UNITS TAB PO SCH (08:09)
[2018-08-13] MEDS: MULTIVITAMIN TAB PO SCH (08:09)
[2018-08-13] MEDS: ATORVASTATIN 40 MG TAB PO SCH (08:09)
[2018-08-13] MEDS: LORATADINE 10 MG TAB PO SCH (08:09)
[2018-08-13] MEDS: PANTOprazole 40 MG TAB PO SCH (08:09)
[2018-08-13] MEDS: FLUTICASONE/SALMETEROL 250/50 (ADVAIR) 14 PUFF/1 INHALER INH SCH ×2 (08:10→21:29)
[2018-08-13] MEDS: AMOXICILLIN/CLAVULANATE 875 MG TAB PO SCH ×2 (08:10→17:27)
[2018-08-13] MEDS: LISINOPRIL 10 MG TAB PO SCH ×2 (08:10→21:31)
[2018-08-13] MEDS: POTASSIUM CHLORIDE 10 MEQ TABCR PO SCH (08:10)
[2018-08-13] MEDS: METOPROLOL TARTRATE 50 MG TAB PO SCH ×2 (08:11→21:31)
[2018-08-13] MEDS: AMLODIPINE BESYLATE 5 MG TAB PO SCH (08:11)
[2018-08-13] MEDS: ARTIFICIAL TEARS OP SCH (08:12)
[2018-08-13] MEDS: ENOXAPARIN INJ 40 MG/0.4 ML SYR SQ SCH (08:13)
[2018-08-13] MEDS: CARBIDOPA/LEVODOPA 25/100MG TAB PO SCH ×4 (08:13→21:29)
[2018-08-13] MEDS: ASPIRIN 81 MG ECTAB PO SCH (08:13)
[2018-08-13] MEDS: AZITHROMYCIN 250 MG TAB PO SCH (08:15)
[2018-08-13] MEDS: RASAGILINE 1 MG PO SCH (08:15)
--- NOTE | 2018-08-13 10:58 | Family Medicine Progress Note ---
Date of Service August 13, 2018 Assessment & Plan (1) Hospital acquired PNA: 87-year-old male was admitted on 04 August 2018 for weakness and found to have influenza A as well as concern for RLL hospital acquired pneumonia. Of note, patient was a resident of [facility] for two weeks and discharged on Apr. Hospital acquired pneumonia: As seen on CXR. Started on Levaquin, vancomycin, and Zosyn. Nasal MRSA negative. 21Apr BCx no growth (final). Continued on Zosyn then switched to Augmentin on 26Apr (end around 03May). Duonebs prn. 29Apr CT chest suggestive of multifocal pneumonia and small bilateral pleural effusions. - Added azithromycin coverage on 30Apr. Influenza A: On 21Apr testing. Completed five day course of oseltamivir. Esophageal dysfunction: As noted on 29Apr swallow evaluation (see full note). See their dietary restrictions and recommendations. 29Apr video swallow notes barium contrast appeared held up around the proximal esophagus as well as evidence of silent aspiration. May be Parkinson-related. 29Apr CT chest mentions mild wall thickening along the distal esophagus without report of proximal esophageal findings. - Added low dose amlodipine in hopes it may lead to some esophageal relaxation effect. Bilateral lower extremity edema: CHF vs venous stasis. 22Apr TTE noted EF 55- 60%, mild LVH, mild-mod MR, & elevated RV systolic pressure. Patient declined compression stockings. Previous medical history: - Asthma: Continue home Advair, albuterol as needed, loratadine, and Singulair. - Hypertension/hyperlipidemia: Continue home metoprolol, lisinopril, aspirin, and Lipitor. --- Consider holding ASA for primary prevention purposes once outpatient. --- Lisinopril was increased to 10 mg daily. - Parkinsons disease: Continue home Sinemet and rasigiline. - GERD: Continue home Prevacid (protonix here) and ranitidine. - BPH: Continue home dutasteride. - Gout, glaucoma. - Chronic lymphocytic leukemia: Baseline WBC around 12. Code status: Full code. Diet: Heart healthy. See swallow evaluation recommendations. DVT prophy: Lovenox. PT/OT: Recommended rehab. Disbo: Admitted to [facility] with telemetry. Lives in [place] with . --- PCP f/u scheduled for 03May. --- Was denied acute rehab. says they are working towards insurance appeal. SNF working on: [facility] out of network. (2) Influenza A: (3) Bilateral lower extremity edema: (4) Asthma: (5) HTN (hypertension): (6) Hyperlipidemia: (7) Parkinson disease: (8) GERD (gastroesophageal reflux disease): (9) BPH (benign prostatic hyperplasia): (10) Gout: (11) Glaucoma: (12) Chronic lymphocytic leukemia: Supervising Physician Co-Signing Physician Notes I personally examined the patient and verified all edwards points of history and exam, discussed case, and agree with decision making with Dr Wilson. Awaiting placement decisions. He notes he expects to hear back about his appeal this afternoon. He wonders if there is anything else he can do to accelerate t he process. Vitals noted, in general he is awake and alert and in no distress. HEENT normocephalic atraumatic mucous membrane is moist. Breathing unlabored no accessory muscle use good effort. Skin shows no rashes no pallor or icterus. He is somewhat slow to respond with quiet voice. Pneumoniaappears to be improving. CT scan consistent with a patchy diffuse infiltrate much more consistent with post influenza bacterial overgrowth than an aspiration event. Continue antibiotics. Probably a total of 2 weeks of treatment Dysphasiaappears to be Parkinson's related. Trial of amlodipine continues. Speech therapy ongoing eval and treat Disposition decisions pending. Stable for rehab or subacute rehab once there is approval and a bed Otherwise as above. Subjective Patient sitting in his bedside chair. Feels "so-so", about the same as yesterday. Reports feeling tired and having some sob. otherwise no concerns Per SW: he is out of network for [facility] and will await pt appeal of [employer] Review of Systems Review of Systems: As per HPI o/w negative Physical Exam Physical Exam: General: In NAD, appears tired CV: RRR, no m/r/g PULM: CTAB, somwhat diminished but equal breath sounds bilaterally ABDOMEN: +BS, non-distended, non-tender to palpation in all quadrants LE: no calf TTP, no LE edema Results & Data Vital Signs (Past 12 Hours) Vital Signs Temp Pulse Resp BP BP Pulse Ox 08/13/18 07:55 36.8 C 73 18 154/80 H 96 08/13/18 04:00 36.6 C 69 20 123/71 95 08/13/18 00:00 36.4 C L 82 20 146/78 H 95 Medications Administered Current Inpatient Medications Acetaminophen (Tylenol) 650 mg PO Q4H PRN PRN Reason: Pain or Fever Stop: 09/03/18 02:50 Last Admin: 08/09/18 19:34 Dose: 650 mg Documented by: Al Hydrox/Mg Hydrox/Simethicone (Maalox) 15 ml PO Q4H PRN PRN Reason: Dyspepsia Stop: 09/03/18 02:50 Albuterol (Ventolin Hfa) 2 puffs INH Q4H PRN PRN Reason: Wheezing Last Admin: 08/12/18 08:10 Dose: 2 puffs Documented by: Albuterol (Duoneb) 3 ml NEB QIDR PRN PRN Reason: Shortness Of Breath Or Wheezing Stop: 09/03/18 07:59 Last Admin: 08/12/18 19:51 Dose: 3 ml Documented by: Amlodipine Besylate ([facility]asc) [facility] Stop: 09/11/18 09:59 Last Admin: 08/13/18 08:11 Dose: 5 mg Documented by: Amoxicillin/Clavulanate Potassium (Augmentin 875mg) 1 tab PO BIDM [facility] Stop: 08/15/18 07:59 Last Admin: 08/13/18 08:10 Dose: 1 tab Documented by: Artificial Tears (Artificial Tears) 1 drops OP DAILY [facility] Stop: 09/03/18 08:59 Last Admin: 08/13/18 08:12 Dose: 1 drops Documented by: Aspirin (Ecotrin Ectab) 81 mg PO DAILY [facility] Stop: 09/03/18 08:59 Last Admin: 08/13/18 08:13 Dose: 81 mg Documented by: Atorvastatin Calcium (Lipitor) 40 mg PO DAILY [facility] Stop: 09/03/18 08:59 Last Admin: 08/13/18 08:09 Dose: 40 mg Documented by: Azithromycin (Zithromax) 250 mg PO QAM [facility] Stop: 08/19/18 08:59 Last Admin: 08/13/18 08:15 Dose: 250 mg Documented by: Benzonatate (Tessalon Perle) 100 mg PO TID PRN PRN Reason: Cough Stop: 09/07/18 08:59 Last Admin: 08/08/18 20:21 Dose: 100 mg Documented by: Carbidopa/Levodopa (Sinemet 25/100 Mg) 2 tab PO 0900,1300,1700,2000 [facility] Stop: 09/03/18 08:59 Last Admin: 08/13/18 08:13 Dose: 2 tab Documented by: Dutasteride (Dutasteride) 1 ea PO HS [facility] Stop: 09/04/18 20:59 Last Admin: 08/12/18 20:10 Dose: 1 ea Documented by: Enoxaparin Sodium (Lovenox) 40 mg SQ QAM [facility] Stop: 09/03/18 08:59 Last Admin: 08/13/18 08:13 Dose: 40 mg Documented by: Ioversol (Optiray 320 100ml) 93 ml IV ONCE PRN PRN Reason: Interaction Checking Stop: 08/15/18 18:50 Last Admin: 08/11/18 18:51 Dose: 93 ml Documented by: Lisinopril (Zestril) 10 mg PO BID [facility] Stop: 09/08/18 20:59 Last Admin: 08/13/18 08:10 Dose: 10 mg Documented by: Loratadine (Claritin) 10 mg PO DAILY [facility] Stop: 09/03/18 08:59 Last Admin: 08/13/18 08:09 Dose: 10 mg Documented by: Menthol (Nice) 1 sree BUCCAL PRN PRN PRN Reason: Cough Stop: 09/05/18 00:29 Metoprolol Tartrate (Lopressor) 75 mg PO BID [facility] Stop: 09/03/18 02:50 Last Admin: 08/13/18 08:11 Dose: 75 mg Documented by: Montelukast Sodium (Singulair) 10 mg PO PM [facility] Stop: 09/03/18 20:59 Last Admin: 08/12/18 20:08 Dose: 10 mg Documented by: Multivitamins (Multivitamin Tab) 1 tab PO DAILY [facility] Stop: 09/03/18 08:59 Last Admin: 08/13/18 08:09 Dose: 1 tab Documented by: Rasigiline 1mg Tablet~Non-Formulary Patient's Own Med 1 ea PO DAILY [facility] Stop: 09/05/18 08:59 Last Admin: 08/13/18 08:15 Dose: 1 mg Documented by: Pantoprazole Sodium (Protonix) 40 mg PO DAILY [facility] Stop: 09/03/18 08:59 Last Admin: 08/13/18 08:09 Dose: 40 mg Documented by: Polyethylene Glycol (Miralax Powder Packet) 17 gm PO DAILY PRN PRN Reason: Constipation Stop: 09/03/18 02:50 Potassium Chloride (Klor-Con M10) 10 meq PO DAILY [facility] Stop: 09/03/18 08:59 Last Admin: 08/13/18 08:10 Dose: 10 meq Documented by: Ranitidine HCl (Zantac) 150 mg PO BID [facility] Stop: 09/03/18 08:59 Last Admin: 08/13/18 08:09 Dose: 150 mg Documented by: Fluticasone/Salmeterol (Advair Diskus 250/50) 1 puffs INH BID [facility] Stop: 09/03/18 08:59 Last Admin: 08/13/18 08:10 Dose: 1 puffs Documented by: Vitamin D (Vitamin D3) 2,000 units PO DAILY [facility] Stop: 09/03/18 08:59 Last Admin: 08/13/18 08:09 Dose: 2,000 units Documented by: Resident Activity Tracking Resident Involvement: Resident Care Provided Care Provided: Adult Hospital Medicine
[2018-08-13] MEDS: ALBUT/IPRATROP 3MG/0.5MG NEB 3 ML VIAL NEB PRN (19:23)
[2018-08-13] MEDS: MONTELUKAST SODIUM 10 MG TABLET PO SCH (21:32)
[2018-08-13] MEDS: DUTASTERIDE 0.5 MG CAPSULE PO SCH (21:33)
[2018-08-14] MEDS: BENZONATATE 100 MG CAPSULE PO PRN ×2 (06:06→21:06)
[2018-08-14] MEDS: PANTOprazole 40 MG TAB PO SCH (08:34)
[2018-08-14] MEDS: AMLODIPINE BESYLATE 5 MG TAB PO SCH (08:34)
[2018-08-14] MEDS: CHOLECALCIFEROL 1,000 UNITS TAB PO SCH (08:34)
[2018-08-14] MEDS: MULTIVITAMIN TAB PO SCH (08:34)
[2018-08-14] MEDS: LORATADINE 10 MG TAB PO SCH (08:34)
[2018-08-14] MEDS: ATORVASTATIN 40 MG TAB PO SCH (08:34)
[2018-08-14] MEDS: AZITHROMYCIN 250 MG TAB PO SCH (08:35)
[2018-08-14] MEDS: ASPIRIN 81 MG ECTAB PO SCH (08:35)
[2018-08-14] MEDS: CARBIDOPA/LEVODOPA 25/100MG TAB PO SCH ×4 (08:35→20:40)
[2018-08-14] MEDS: LISINOPRIL 10 MG TAB PO SCH ×2 (08:35→20:38)
[2018-08-14] MEDS: POTASSIUM CHLORIDE 10 MEQ TABCR PO SCH (08:36)
[2018-08-14] MEDS: ARTIFICIAL TEARS OP SCH (08:36)
[2018-08-14] MEDS: FLUTICASONE/SALMETEROL 250/50 (ADVAIR) 14 PUFF/1 INHALER INH SCH ×2 (08:36→20:39)
[2018-08-14] MEDS: METOPROLOL TARTRATE 50 MG TAB PO SCH ×2 (08:37→20:37)
[2018-08-14] MEDS: ENOXAPARIN INJ 40 MG/0.4 ML SYR SQ SCH (08:38)
[2018-08-14] MEDS: AMOXICILLIN/CLAVULANATE 875 MG TAB PO SCH ×2 (08:39→17:08)
[2018-08-14] MEDS: RASAGILINE 1 MG PO SCH (08:39)
[2018-08-14] MEDS: ALBUT/IPRATROP 3MG/0.5MG NEB 3 ML VIAL NEB PRN (11:53)
--- NOTE | 2018-08-14 18:39 | Family Medicine Progress Note ---
Date of Service August 14, 2018 Assessment & Plan (1) Hospital acquired PNA: 87-year-old male was admitted on 04 August 2018 for weakness and found to have influenza A as well as concern for RLL hospital acquired pneumonia. Of note, patient was a resident of [facility] for two weeks and discharged on Apr. Hospital acquired pneumonia: As seen on CXR. Started on Levaquin, vancomycin, and Zosyn. Nasal MRSA negative. 21Apr BCx no growth (final). Continued on Zosyn then switched to Augmentin on 26Apr (end around 03May). Duonebs prn. 29Apr CT chest suggestive of multifocal pneumonia and small bilateral pleural effusions. - Added azithromycin coverage on 30Apr. Influenza A: On 21Apr testing. Completed five day course of oseltamivir. Esophageal dysfunction: As noted on 29Apr swallow evaluation (see full note). See their dietary restrictions and recommendations. 29Apr video swallow notes barium contrast appeared held up around the proximal esophagus as well as evidence of silent aspiration. May be Parkinson-related. 29Apr CT chest mentions mild wall thickening along the distal esophagus without report of proximal esophageal findings. - Added low dose amlodipine in hopes it may lead to some esophageal relaxation effect. Bilateral lower extremity edema: CHF vs venous stasis. 22Apr TTE noted EF 55- 60%, mild LVH, mild-mod MR, & elevated RV systolic pressure. Patient declined compression stockings. Previous medical history: - Asthma: Continue home Advair, albuterol as needed, loratadine, and Singulair. - Hypertension/hyperlipidemia: Continue home metoprolol, lisinopril, aspirin, and Lipitor. --- Consider holding ASA for primary prevention purposes once outpatient. --- Lisinopril was increased to 10 mg daily. - Parkinsons disease: Continue home Sinemet and rasigiline. - GERD: Continue home Prevacid (protonix here) and ranitidine. - BPH: Continue home dutasteride. - Gout, glaucoma. - Chronic lymphocytic leukemia: Baseline WBC around 12. Code status: Full code. Diet: Heart healthy. See swallow evaluation recommendations. DVT prophy: Lovenox. PT/OT: Recommended rehab. Disbo: Admitted to [facility] with telemetry. Lives in [place] with . --- PCP f/u scheduled for 03May. --- Insurance appeal of [facility] denied. Waiting to see if feels safe caring for pt at home based on trial test to go home with therapy (2) Influenza A: (3) Bilateral lower extremity edema: (4) Asthma: (5) HTN (hypertension): (6) Hyperlipidemia: (7) Parkinson disease: (8) GERD (gastroesophageal reflux disease): (9) BPH (benign prostatic hyperplasia): (10) Gout: (11) Glaucoma: (12) Chronic lymphocytic leukemia: Supervising Physician Co-Signing Physician Notes I personally examined the patient and verified all edwards points of history and exam, discussed case, and agree with decision making with Dr Aviles. Awaiting placement decisions. later told rehab denied. asked for him to ambulate w watching to ensure their plan of home w home health would be safe. unfortunately this was not done. Vitals noted, in general he is awake and alert and in no distress. HEENT normocephalic atraumatic mucous membrane is moist. Breathing unlabored no accessory muscle use good effort. Skin shows no rashes no pallor or icterus. He is somewhat slow to respond with quiet voice. Pneumoniaappears to be improving. CT scan consistent with a patchy diffuse infiltrate much more consistent with post influenza bacterial overgrowth than an aspiration event. Continue antibiotics, but improving nicely. Dysphasiaappears to be Parkinson's related. Trial of amlodipine continues. Speech therapy ongoing eval and treat. no acute s/s aspiration Disposition decisions pending. pt/ now opting for home - discussed that for this to be safe she needs to see him in his current level of frailty w ambulation/etc. unfortunately she has yet to do that. Otherwise as above. Subjective This AM patient sitting in his bedside chair. Feels "so-so. Reports wanting to leave the hospital and hoping rehab accepted him. otherwise no concerns Per SW: pt's appeal of [employer] denial was denied today. Pt not safe to go home unless who was not here today feels she can safely care for him with outpt rehab. Review of Systems Review of Systems: As per HPI otherwise negative Physical Exam Physical Exam: General: In NAD, appears tired CV: RRR, no m/r/g PULM: CTAB, mildly diminished but equal breath sounds bilaterally ABDOMEN: +BS, non-distended, non-tender to palpation in all quadrants LE: no calf TTP, 1+ LE edema Results & Data Vital Signs (Past 12 Hours) Vital Signs Temp Pulse Resp BP BP Pulse Ox 08/14/18 15:22 36.4 C L 71 18 111/63 97 08/14/18 11:55 64 18 97 08/14/18 07:35 36.9 C 18 137/74 93 Medications Administered Current Inpatient Medications Acetaminophen (Tylenol) 650 mg PO Q4H PRN PRN Reason: Pain or Fever Stop: 09/03/18 02:50 Last Admin: 08/09/18 19:34 Dose: 650 mg Documented by: Al Hydrox/Mg Hydrox/Simethicone (Maalox) 15 ml PO Q4H PRN PRN Reason: Dyspepsia Stop: 09/03/18 02:50 Albuterol (Ventolin Hfa) 2 puffs INH Q4H PRN PRN Reason: Wheezing Last Admin: 08/12/18 08:10 Dose: 2 puffs Documented by: Albuterol (Duoneb) 3 ml NEB QIDR PRN PRN Reason: Shortness Of Breath Or Wheezing Stop: 09/03/18 07:59 Last Admin: 08/14/18 11:53 Dose: 3 ml Documented by: Amlodipine [facility] ([facility]asc) [facility] Stop: 09/11/18 09:59 Last Admin: 08/14/18 08:34 Dose: 5 mg Documented by: Amoxicillin/Clavulanate Potassium (Augmentin 875mg) 1 tab PO BIDM [facility] Stop: 08/15/18 07:59 Last Admin: 08/14/18 17:08 Dose: 1 tab Documented by: Artificial Tears (Artificial Tears) 1 drops OP DAILY [facility] Stop: 09/03/18 08:59 Last Admin: 08/14/18 08:36 Dose: 1 drops Documented by: Aspirin (Ecotrin Ectab) 81 mg PO DAILY [facility] Stop: 09/03/18 08:59 Last Admin: 08/14/18 08:35 Dose: 81 mg Documented by: Atorvastatin Calcium (Lipitor) 40 mg PO DAILY [facility] Stop: 09/03/18 08:59 Last Admin: 08/14/18 08:34 Dose: 40 mg Documented by: Azithromycin (Zithromax) 250 mg PO QAM [facility] Stop: 08/19/18 08:59 Last Admin: 08/14/18 08:35 Dose: 250 mg Documented by: Benzonatate (Tessalon Perle) 100 mg PO TID PRN PRN Reason: Cough Stop: 09/07/18 08:59 Last Admin: 08/14/18 06:06 Dose: 100 mg Documented by: Carbidopa/Levodopa (Sinemet 25/100 Mg) 2 tab PO 0900,1300,1700,2000 [facility] Stop: 09/03/18 08:59 Last Admin: 08/14/18 17:07 Dose: 2 tab Documented by: Dutasteride (Dutasteride) 1 ea PO HS [facility] Stop: 09/04/18 20:59 Last Admin: 08/13/18 21:33 Dose: 1 ea Documented by: Enoxaparin Sodium (Lovenox) 40 mg SQ QAM [facility] Stop: 09/03/18 08:59 Last Admin: 08/14/18 08:38 Dose: 40 mg Documented by: Ioversol (Optiray 320 100ml) 93 ml IV ONCE PRN PRN Reason: Interaction Checking Stop: 08/15/18 18:50 Last Admin: 08/11/18 18:51 Dose: 93 ml Documented by: Lisinopril (Zestril) 10 mg PO BID [facility] Stop: 09/08/18 20:59 Last Admin: 08/14/18 08:35 Dose: 10 mg Documented by: Loratadine (Claritin) 10 mg PO DAILY [facility] Stop: 09/03/18 08:59 Last Admin: 08/14/18 08:34 Dose: 10 mg Documented by: Menthol (Nice) 1 sree BUCCAL PRN PRN PRN Reason: Cough Stop: 09/05/18 00:29 Metoprolol Tartrate (Lopressor) 75 mg PO BID [facility] Stop: 09/03/18 02:50 Last Admin: 08/14/18 08:37 Dose: 75 mg Documented by: Montelukast Sodium (Singulair) 10 mg PO PM [facility] Stop: 09/03/18 20:59 Last Admin: 08/13/18 21:32 Dose: 10 mg Documented by: Multivitamins (Multivitamin Tab) 1 tab PO DAILY [facility] Stop: 09/03/18 08:59 Last Admin: 08/14/18 08:34 Dose: 1 tab Documented by: Rasigiline 1mg Tablet~Non-Formulary Patient's Own Med 1 ea PO DAILY [facility] Stop: 09/05/18 08:59 Last Admin: 08/14/18 08:39 Dose: 1 mg Documented by: Pantoprazole Sodium (Protonix) 40 mg PO DAILY [facility] Stop: 09/03/18 08:59 Last Admin: 08/14/18 08:34 Dose: 40 mg Documented by: Polyethylene Glycol (Miralax Powder Packet) 17 gm PO DAILY PRN PRN Reason: Constipation Stop: 09/03/18 02:50 Potassium Chloride (Klor-Con M10) 10 meq PO DAILY [facility] Stop: 09/03/18 08:59 Last Admin: 08/14/18 08:36 Dose: 10 meq Documented by: Ranitidine HCl (Zantac) 150 mg PO BID [facility] Stop: 09/03/18 08:59 Last Admin: 08/14/18 08:35 Dose: 150 mg Documented by: Fluticasone/Salmeterol (Advair Diskus 250/50) 1 puffs INH BID [facility] Stop: 09/03/18 08:59 Last Admin: 08/14/18 08:36 Dose: 1 puffs Documented by: Vitamin D (Vitamin D3) 2,000 units PO DAILY [facility] Stop: 09/03/18 08:59 Last Admin: 08/14/18 08:34 Dose: 2,000 units Documented by: Resident Activity Tracking Resident Involvement: Resident Care Provided Care Provided: Adult Hospital Medicine
[2018-08-14] MEDS: MONTELUKAST SODIUM 10 MG TABLET PO SCH (20:37)
[2018-08-14] MEDS: DUTASTERIDE 0.5 MG CAPSULE PO SCH (20:40)
[2018-08-15] MEDS: MULTIVITAMIN TAB PO SCH (08:01)
[2018-08-15] MEDS: PANTOprazole 40 MG TAB PO SCH (08:01)
[2018-08-15] MEDS: AMLODIPINE BESYLATE 5 MG TAB PO SCH (08:01)
[2018-08-15] MEDS: CHOLECALCIFEROL 1,000 UNITS TAB PO SCH (08:01)
[2018-08-15] MEDS: CARBIDOPA/LEVODOPA 25/100MG TAB PO SCH ×3 (08:01→17:28)
[2018-08-15] MEDS: LORATADINE 10 MG TAB PO SCH (08:01)
[2018-08-15] MEDS: POTASSIUM CHLORIDE 10 MEQ TABCR PO SCH (08:02)
[2018-08-15] MEDS: ASPIRIN 81 MG ECTAB PO SCH (08:02)
[2018-08-15] MEDS: METOPROLOL TARTRATE 50 MG TAB PO SCH (08:02)
[2018-08-15] MEDS: ATORVASTATIN 40 MG TAB PO SCH (08:02)
[2018-08-15] MEDS: AZITHROMYCIN 250 MG TAB PO SCH (08:03)
[2018-08-15] MEDS: RASAGILINE 1 MG PO SCH (08:04)
[2018-08-15] MEDS: ENOXAPARIN INJ 40 MG/0.4 ML SYR SQ SCH (08:04)
[2018-08-15] MEDS: FLUTICASONE/SALMETEROL 250/50 (ADVAIR) 14 PUFF/1 INHALER INH SCH (08:04)
[2018-08-15] MEDS: ARTIFICIAL TEARS OP SCH (08:09)
[2018-08-15] MEDS: LISINOPRIL 10 MG TAB PO SCH (08:51)
--- NOTE | 2018-08-15 16:46 | Ultrasound Report ---
US venous doppler LE BI CLINICAL HISTORY: asymmetric swelling r/o DVT COMPARISON STUDY: No previous studies for comparison. FINDINGS: Real-time and color flow Doppler imaging were performed. Flow was seen within the femoral, popliteal and calf veins with no intraluminal thrombus demonstrated. The saphenous vein is patent. Th ere is a 24 x 35 x 7 mm right popliteal cyst. IMPRESSION: No evidence of lower extremity DVT. Electronically signed by: Brady Paulson M.D. 08/15/2018 4:45 PM
[2018-08-15 16:59] VITALS: TEMP 97.3; O2SAT 97
[2018-08-15 17:14] VITALS: BP 93/51; PULSE 66
--- NOTE | 2018-08-15 18:04 | Discharge Summary ---
Date of Service August 15, 2018 Admission HPI Per Admitting Provider 87yoM with hx of CLL, HTN, HLD, Parkinson's, asthma, glaucoma, gout, BPH presents with weakness x 1 day. Reports being at [facility] for 2 weeks to get stronger and was discharged on 08/01. Today he felt very weak. It took him 2 hours to get ready to come downstairs to eat something and then had to sit on the steps half way because he felt very tired. A/w feeling thirsty, mildly productive cough, sob, headache, chronic constipation. Denies f/c, rhinorrhea, cp, n/v, abdominal pain, d/c, hematochezia, dysuria, hematuria In the Ed found to have WBC of 17.7 and CXR concerning for RLL PNA and he was positive for influenza A. Received levaquin, zosyn and vanc x 1. Duoneb x 1, NS 1L IVF, Oseltamivir x 1. He was afebrile, but mildly hypertensive and tachycardic to 100s. Principal Diagnosis Influenza with superimposed pneumonia Parkinson's with weakness Parkinson's related dysphasia Discharge Exam General he is awake and alert pleasant no distress. Very slow moving slow to respond. HEENT normocephalic atraumatic mucous membranes are moist. Breathing is unlabored no accessory muscle use good effort. Skin shows no rashes no pallor or icterus. Lower extremities show right lower extremity edema venous stasis appearing duskiness of the toes, he has good pulses and good cap refill and its nontender it is warm. He has no calf tenderness. Left leg trace edema. He has a mild degree of tenderness across the right plantar surface of his foot in the neighborhood of the metatarsophalangeal joints. There is no crepitus and no point tenderness. Discharge Data Allergies Allergy/AdvReac Type Severity Reaction Status Date / Time grass pollen-perennial rye, Allergy Intermediate allergy Verified 08/03/18 21:32 standar cat dander Allergy Unknown allergy Verified 08/03/18 21:32 Consultations 08/03/18 22:40 ED Decision to Admit Stat 08/05/18 13:46 Consult Case Management - Discharge Planning Routine Ordered Studies 08/11/18 12:45 FL video swallow Routine 08/11/18 16:29 CT chest w con Routine 08/15/18 13:54 US venous doppler [facility] Course (1) Influenza A: Resolved, finished full course of Tamiflu (2) Pneumonia: Clinically has resolved, finished a long course of antibiotics. Does not show a need for ongoing course of antibiotics after discharge. Follow-up with PCP. (3) Bilateral lower extremity edema: Appears to be venous stasis related. The asymmetry appears to be related to a popliteal cyst right leg creating further diminished venous return. We discussed compression, elevation, and most importantly ambulation. (4) Parkinson disease: Follow-up with neurology. This appears to be the main root cause of his weakness and dysphagia In regards to his dysphasia, fortunately his pneumonia did not appear consistent with aspiration, but he was found to have pretty significant dysphasia. He is on appropriate Parkinson's meds, we added amlodipine to try to allow for less esophageal dysmotility, and he is to have ongoing speech therapy for swallowing. Speech recommendations were also made given to the patient and his . (5) Weakness: Ongoing PT and OT eval and treat. Fortunately he is safe for home with his . (6) DVT prophylaxis: Lovenox (7) Discharge planning issues: Home with , outpatient PT/OT/speech. (8) HTN (hypertension): Was fairly uncontrolled during his stay here, lisinopril was increased, then amlodipine was added (primarily for esophageal dysmotility, but also certainly will help with pressure) outpatient follow-up of blood pressure and basic metabolic panel. Total Time Total Time Spent Total Time Spent (In Minutes): Greater than an hour Discharge Plan Discharge Items Patient Disposition: Home - Home Health Services Reason For Visit: WEAKNESS, COUGH Discharge Diagnosis: flu with secondary overgrowth pneumonia Discharge Goals: Decrease discomfort Activity: Resume your previous activity Non-emergency contact: Primary Care Provider and Neurologist Call non-emergency contact if: you have any medication questions Diet: Regular Addtl Provider Instructions: flu, pneumonia -as happens, you had influenza, and then had a secondary bacterial overgrowth pneumonia -fortunately this has gotten better -you were in the hospital long enough that you've finished your course of antibiotics -it is fairly common for a residual cough and fatigue to last for a few weeks to a month -- if so, it will slowly improve over time. if things were to worsen we'd want you seen again weakness/parkinsons -as we discussed, it is quite important to take your parkinsons medications ON TIME. they are fairly quick on, fairly quick off medicines -- if you push around the dosing times, you can definitely be weaker/stiffer/have "freeze episodes" and not do as well as you could be doing -also as we discussed, movement is CRITICAL to not getting weaker. every day you should be doing some kind of exercises, and moving around as much as you can. especially with parkinsons, if you sit for too much of the day, you will most likely get weaker and slowly start to lose your ability to function -the passive range of motion machines that you're referencing could be helpful for stiffness, but won't really do anything to help with strengthening (which real, formal exercise will) - so you really have to look at them as two different things -- one for helping with stiffness but another for strengthening swallowing -while your pneumonia did not appear consistent with aspiration (sucking food down the wrong pipe), your swallowing does appear suspect enough that it could allow aspiration to happen -this seems most consistent with the parkinsons --> continue to work with neurology for actually managing the disease -to help "food get down" we've added amlodipine - typically a blood pressure medicine, but since it acts to relax smooth muscle, it will help relax your esophagus. this, combined with being upright for a while (45-60mins) after eating, will allow gravity to help food slide down the right pipe instead of getting backed up -you should also continue to work with speech therapy as an outpatient to continue with swallowing "coaching" to improve your ability as much as possible blood pressure -your pressures here were quite high. for the most part now they're running normal - but we did increase blood pressure medicines (increasing the lisinopril, adding the amlodipine (while done for esophagus purposes, of course it will still lower BP) -- keep a log of readings (random times of day, multiple times if possible) and review them at office follow ups -also pay attention to any dizziness or lightheadedness when you first stand up. since it hasn't happened here, it's unlikely to happen, but if you were to notice that, we'd want you to call your PCP for evaluation (and more than likely a dose reduction in the amlodipine) Prescriptions: New amlodipine [Norvasc] 5 mg Tablet 5 mg PO QAM Qty: 30 RF: 0 lisinopril [Zestril] 10 mg Tablet 10 mg PO BID Qty: 60 RF: 0 Continued multivitamin Tablet 1 tab PO DAILY RF: 0 atorvastatin [Lipitor] 40 mg Tablet 40 mg PO DAILY RF: 0 potassium chloride 10 mEq Tablet Extended Release 10 meq PO DAILY RF: 0 aspirin 81 mg Tablet,Delayed Release (Dr/Ec) 81 mg PO DAILY RF: 0 ranitidine HCl [Zantac] 150 mg Tablet 150 mg PO BID RF: 0 metoprolol tartrate 50 mg Tablet 75 mg PO BID RF: 0 lansoprazole [Prevacid] 15 mg Capsule,Delayed Release(Dr/Ec) 15 mg PO DAILY RF: 0 montelukast [Singulair] 10 mg Tablet 10 mg PO PM RF: 0 albuterol sulfate [ProAir HFA] 90 mcg/actuation Hfa Aerosol Inhaler 2 puff INHALATION Q4H PRN (Reason: Wheezing) RF: 0 carbidopa-levodopa [Sinemet] 25-100 mg Tablet 2 tab PO DIRECTED RF: 0 loratadine [Claritin] 10 mg Tablet 10 mg PO DAILY RF: 0 cranberry 500 mg Capsule 1,000 mg PO DAILY RF: 0 dutasteride [Avodart] 0.5 mg Capsule 0.5 mg PO DAILY RF: 0 cinnamon bark [Cinnamon] 500 mg Capsule 1 tab PO DAILY RF: 0 Systane (PF) 0.4-0.3 % Dropperette 1 drp OPHTHALMIC (EYE) DAILY RF: 0 rasagiline 1 mg Tablet 1 mg PO DAILY RF: 0 cholecalciferol (vitamin D3) [Vitamin D3] 2,000 unit Capsule 2,000 unit PO DAILY RF: 0 Lucas-3 Fish Oil 300-1,000 mg Capsule 1,400 mg PO DAILY RF: 0 turmeric 400 mg Capsule 400 mg PO DAILY RF: 0 fluticasone propion-salmeterol [Advair Diskus] 250-50 mcg/dose blister with device 1 puff inhalation BID RF: 0 Discontinued lisinopril 5 mg Tablet 5 mg PO DAILY RF: 0 ibuprofen 200 mg Tablet 200 mg PO Q6H RF: 0 Stand-Alone Forms: [facility] Discharge Orders: Discharge Order (Routine); Ordered 08/15/18 Ordered By: Aman Santana Admission Data Admit Date/Time: 08/04/18 00:39 Attending Provider: Aman Santana Admit Provider: Bryant Gloria Primary Care Provider: Anderson Snyder Other Providers: Bryant Gloria ; Nathan Blair Service: Telemetry Medical Other Interventions: Discharge Summary Assessment (RN) Last Done: 08/15/18 17:13
== END 2018-08-15 18:46 | disposition home health service (06) | DRG 194 ==
LOC: ED 20:52 → 2N 08-04 00:39 → SUATTDRO 08-04 00:39 → 2N 08-04 02:17